=== PATIENT | female | born 1960 | race Caucasian/White ===

== ENCOUNTER 2020-06-22 09:00 | Inpatient (IN) | payer BC ==
[~2020-06-22] VITALS: Ht 160 cm; Wt 84.7 kg
[2020-06-22] MEDS ORDERED: ALTE2VIA2 (11:25)
[2020-06-22] MEDS ORDERED: HEPA500018 SQ (11:25)
[2020-06-22] MEDS ORDERED: PROM25AM2 IV (11:25)
[2020-06-22] MEDS ORDERED: METO5VIA26 IV (11:25)
[2020-06-22] MEDS ORDERED: PRD10T PO (11:25)
[2020-06-22] MEDS ORDERED: ONDA2VIA2 IV (11:25)
[2020-06-22] MEDS ORDERED: INSU100V39 SQ (11:25)
[2020-06-22] MEDS ORDERED: SODI10SY5 (11:25)
[2020-06-22] MEDS ORDERED: SUCR1TAB36 PO (11:25)
[2020-06-22] MEDS ORDERED: FLUT1DIS26 IH (11:25)
[2020-06-22] MEDS ORDERED: DEXT50DI2 IV (11:25)
[2020-06-22] MEDS ORDERED: ACET650S15 RC (11:25)
[2020-06-22] MEDS ORDERED: HYDR20VI7 IV (11:25)
[2020-06-22] MEDS ORDERED: MULT-166 PO (11:25)
[2020-06-22] MEDS ORDERED: DIPH50VI12 IV (11:25)
[2020-06-22] MEDS ORDERED: PHEN30SP8 PO (11:25)
[2020-06-22] MEDS ORDERED: FAMO20TA3 PO (11:25)
[2020-06-22] MEDS ORDERED: ACET-2650 PO (11:25)
[2020-06-22] MEDS ORDERED: MIDO5TAB3 PO (11:25)
[2020-06-22] MEDS ORDERED: DICL100G18 TOP (11:25)
[2020-06-22] MEDS ORDERED: LORA2VIA3 IV (11:25)
[2020-06-22] MEDS ORDERED: NYST1POW31 TOP (11:25)
[2020-06-22] MEDS ORDERED: LACT1CAP7 PO (11:25)
[2020-06-22] MEDS ORDERED: LIDO700A45 TP (11:25)
[2020-06-22] MEDS ORDERED: SODI10SY5 IV ×2 (11:25)
[2020-06-22] MEDS ORDERED: IPRA3AMP31 IH (11:25)
[2020-06-22] MEDS ORDERED: TRAM50TA3 PO (11:25)
[2020-06-22] MEDS ORDERED: LEVO100T7 PO (11:25)
[2020-06-22 12:00] VITALS: BP 129/69
[2020-06-22] MEDS ORDERED: FLEET ENEMA ADULT 1 EA BTL PR PRN (12:30)
[2020-06-22] MEDS ORDERED: DOCUSATE SODIUM 100 MG (COLACE) CAP PO PRN (12:30)
[2020-06-22] MEDS ORDERED: diphenhydrAMINE 25 MG TAB (BENADRYL) PO PRN (12:30)
[2020-06-22] MEDS ORDERED: guaiFENesin/CODEINE (ROBITUSSIN AC) 10ML UDC PO PRN (12:30)
[2020-06-22] MEDS ORDERED: MELATONIN 3 MG TABLET PO PRN (12:30)
[2020-06-22] MEDS ORDERED: LOPERAMIDE 2 MG (IMODIUM) TABLET PO PRN (12:30)
[2020-06-22] MEDS ORDERED: ONDANSETRON 4 MG (ZOFRAN) ORAL DISSOLVE TAB PO PRN (12:30)
[2020-06-22] MEDS ORDERED: BISACODYL 10 MG SUPP (DULCOLAX) PR PRN (12:30)
[2020-06-22] MEDS ORDERED: LACTULOSE SYRUP 10GM/15ML (ENULOSE) 30ML UDC PO PRN (12:30)
[2020-06-22] MEDS ORDERED: ACETAMINOPHEN 500 MG TAB (TYLENOL) PO PRN (12:30)
[2020-06-22] MEDS ORDERED: ALPRAZolam 0.25 MG (XANAX) TAB PO PRN (12:30)
[2020-06-22] MEDS ORDERED: CALCIUM CARBONATE 500 MG (TUMS) TAB.CHEW PO PRN (12:30)
--- NOTE | 2020-06-22 12:40 | Occupational Therapy Eval ---
OT Evaluation-General/PLF Medical Diagnosis Admission Date June 22, 2020 Medical Diagnosis: disuse myopathy Onset Date: Mar 08, 2020 Therapy Diagnosis Therapy Diagnosis: weakness, decreased ADL status Referral Physician: Regi Referral Reason: Evaluation/Treatment Medical History Pertinent Medical History: COPD, Hypothroidism Additional Medical History chronic constipation, depression, insomnia, bipolar disorder Current History Admit 03/08/2020 to [facility] for complications of diverticulosis, suffered ruptured diverticullum and peritonitis. Found to have large perforated duodenal ulcer and abscess. by day 11 required diverting ileostomy and colorrhaphy. Day 15 takedown of colostomy and colcolostomy, multiple washouts in OR and 3 drains. Admitted to LT[facility], weaned from BiPAP to RA and no longer needs TPN. 06/22/[address] [facility] for continued medication management and skilled therapies Social History Current Living Status: Other Family (Parents) ADL-Prior Level of Function SCALE: Activities may be completed with or without assistive devices. 8-Amgqnxjbet-eripdoc completes the activity by him/herself with no assistance from a helper. 5-Set-up or Clean-up Assistance-helper sets up or cleans up; patient completes activity. Kimberly assists only prior to or following the activity. 4-Supervision or Touching Assistance-helper provides verbal cues and/or touching/steadying and/or contact guard assistance as patient completes activity. Assistance may be provided throughout the activity or intermittently. 3-Partial/Moderate Assistance-helper does LESS THAN HALF the effort. Kimberly lifts, holds or supports trunk or limbs, but provides less than half the effort. 2-Substantial/Maximal Assistance-helper does MORE THAN HALF the effort. Kimberly lifts or holds trunk or limbs and provides more than half the effort. 3-Miurykzed-igdxzi does ALL the effort. Patient does none of the effort to complete the activity. Or, the assistance of 2 or more helpers is required for the patient to complete the activity. If activity was not attempted, code reason: 7-Patient Refused. 9-Not Applicable-not attempted and the patient did not perform the activity before the current illness, exacerbation or injury. 10-Not Attempted due to Environmental Limitations-(lack of equipment, weather restraints, etc.). 88-Not Attempted due to Medical Conditions or Safety Concerns. ADL PLOF Comments IND with ADLS and functional mobility, no AD/AE. 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 Agreeable to OT evaluation and OT/PT cotreat. Pt reports chills, nurse states pt has fever. Mental Status/Objective Patient Orientation: Person, Place, Time, Situation Attachments: Colostomy/Ileostomy, Drains Current Glasses/Contacts: Yes Hearing Aids: No Dentures/Partials: No Hand Dominance: Right Upper Extremity ROM Pt reports able to feed herself, unable to formally test due to pt fatigue and chills Upper Extremity Coordination shakiness with fine motor tasks Upper Extremity Sensation Pt reports no tingling/numbness Upper Extremity Strength grossly 2+/5 ADL-Treatment Eating (QC): 5 (Per pt report) Oral Hygiene (QC): 5 (Per pt report) Shower/Bathe Self (QC): 1 (Assist x2 for sponge bath at bed level) Upper Body Dressing (QC): 2 (Based on clinical judgement, pt would require max A with task.) Lower Body Dressing (QC): 1 (Based on clinical judgement, pt would require assist x2 and assist with all parts.) On/Off Footwear (QC): 1 (Total sasist donning/doffing gripper socks) Toileting Hygiene (QC): 1 (Assist x2 at bed level for rolling side to side.) Other Treatments OT evaluation complete. PT/OT cotreat due to pt skill of 2 clinicians required which a electrostatic powder coating technician could not perform in order to coordinate UE/LE with tasks, decrease fall risk, and due to pt's limitations in mobility, transfers, e ndurance, strength, and fatigue. OT focused on ADLs, UE placement, cues for sequencing and placement, PT focused on LE placement, gross overall movements, and mobility/transfers. Dependent jens transfer from w/c to bed. Pt completed sponge bath at bed level, assist x2 for rolling side to side in order to wash buttocks and back. Pt required frequent rest breaks during tx due to fatigue and overal not feeling well. Pt changed hospital gown, and discussed level of assistance required with eating and oral care (set up assistance with both). Post tx, pt laying in bed, call light in reach and all needs met, nurse present. Education OT Patient Education: Correct positioning, Energy conservation, Exercise program, Modified ADL techniques, Progress toward Goal/Update tx plan, Purpose of tx/functional activities, Rehab process Teaching Recipient: Patient Teaching Methods: Discussion Response to Teaching: Verbalize Understanding OT Short Term Goals Short Term Goals Time Frame: Jul 06, 2020 Toileting hygiene: 3 Shower/bathe self: 3 Upper body dressin Lower body dressin Putting on/taking off footwear: 3 OT [employer] Production Specialist Goals Prison Goals Time Frame: Jul 20, 2020 Eating (QC): 6 Oral Hygiene (QC): 6 Toileting Hygiene (QC): 6 Shower/Bathe Self (QC): 6 Upper Body Dressing (QC): 6 Lower Body Dressing (QC): 6 On/Off Footwear (QC): 6 Additional Goals: 1-Demonstrate ADL Tasks, 2-Verbalize Understanding, 3- ImproveStrength/Joni 1=Demonstrate adherence to instructed precautions during ADL tasks. 2=Patient will verbalize/demonstrate understanding of assistive devices/modifications for ADL. 3=Patient will improve strength/tolerance for activity to enable patient to perform ADL's. OT Education/Plan Problem List/Assessment Assessment: Decreased Activ Tolerance, Decreased UE Strength, Dependent Transfers, Impaired Bed Mobility, Impaired Coordination, Impaired Funct Balance, Impaired I ADL's, Impaired Self-Care Skills, Restricted Funct UE ROM Discharge Recommendations Plan/Recommendations: Continue POC Comment Discharge/equipment recommendations to be determined. Treatment Plan/Plan of Care Patient would benefit from OT for education, treatment and training to promote independence in ADL's, mobility, safety and/or upper extremity function for ADL's. Plan of Care: ADL Retraining, Functional Mobility, Group Exercise/Act as Ind, UE Funct Exercise/Act Treatment Duration: Jul 20, 2020 Frequency: Modified Program (IRF) (11/10) Estimated Hrs Per Day: 1.5 hours per day (1-1.5 hours/day) Rehab Potential: Fair Time/GCodes Start Time: 12:40 Stop Time: 14:25 Total Time Billed (hr/min): 75 Billed Treatment Time 2205-7342 OT evaluation, 2577-1858 PT evaluation, 8237-4834 OT/PT cotreat, 1410- 1425 OT/PT cotreat 1, EVH (10'), ADL 4 (65') KARMA FROST OT Jun 22, 2020 12:40
[2020-06-22 13:00] VITALS: BP 128/66
[2020-06-22] MEDS ORDERED: meTOprolol 5 MG/5 ML (LOPRESSOR) VIAL IV PRN (13:00)
[2020-06-22] MEDS ORDERED: DEXTROSE 50% 50 ML (IMS) SYR IV PRN (13:00)
[2020-06-22] MEDS ORDERED: hydrALAZINE (APESOLINE) 20 MG/ML VIAL IV PRN (13:00)
[2020-06-22] MEDS ORDERED: VANCOMYCIN INJECTION 1,000 MG in NS (IVPB) 250 ML IV SCH (13:00)
[2020-06-22] MEDS ORDERED: MEROPENEM 1,000 MG in WATER (STERILE) FOR INJECTION 20 ML IV SCH (13:00)
[2020-06-22] MEDS ORDERED: diphenhydrAMINE 50 MG/ML INJ (BENADRYL) IV PRN (13:00)
[2020-06-22] MEDS ORDERED: CATHETER FLUSH 10 ML SYR IV PRN ×2 (13:00)
[2020-06-22] MEDS ORDERED: PROMETHAZINE INJ 25 MG/ML (PHENERGAN) AMP IV PRN (13:00)
[2020-06-22] MEDS ORDERED: RT-ALBUTEROL/IPRATROPIUM 3 ML (DUONEB) VIAL IH PRN (13:00)
[2020-06-22] MEDS ORDERED: ALTEPLASE 2 MG (CATHFLO) INCATH PRN (13:00)
[2020-06-22] MEDS ORDERED: ACETAMINOPHEN 650 MG SUPP (TYLENOL) RC PRN (13:00)
--- NOTE | 2020-06-22 13:13 | PM&R Post Admission Assessment ---
PM&R HP Date of Visit: Jun 22, 2020 Time of Visit: 13:15 History of Present Illness CC: Disuse myopathy HPI: This is a 60yoWF who was originally admitted August 2019 at [facility] due to a ruptured diverticulum requiring diverting iliostomy and then admitted on 03/08/2020 to [facility] for elective take-down of iliostomy but soon after that surgery it was apparent she had sepsis so she had exploratory surgery which revealed peritonitis and a large perforated duodenal ulcer and abscess and by day 15 required a takedown of colostomy and multiple washouts in OR and 3 drains. Admitted to [facility] from [facility] and required a clamp placement endoscopically by Dr Cardenas which closed the non-healing duodenal ulcer and was weaned from BiPAP to RA and no longer needed TPN currently. I received check out from Dr Palacios who has been managing FUO with antibiotics. She arrived with fever of 101.2 so sepsis w/u initiated without signs of hypotension so she was pancultured and CXR revealed PNA so she was placed on Meropenem and Vanc empirically and given IVF. Dr Moser has been consulted for general surgery needs and management of drain and wound. Patient appears to be very debilitated and will require 11/10 rehab pace to accommodate for her severe weakness and current sepsis. 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 Allergy/Meds/Data Review Allergies Coded Allergies: Penicillins (Verified Allergy, Unknown, 06/22/20) Home Medications Scheduled Diclofenac Sodium (Voltaren), 1 APPLIC TOP BID, (Reported) Famotidine (Acid Wood Polisher (FAMOTIDINE)), 20 MG PO BID, (Reported) Fluticasone/Salmeterol (Advair 250-50 Diskus), 1 EACH IH BID, (Reported) Heparin Sodium,Porcine (Heparin Sodium), 5,000 UNIT SQ Q12H, (Reported) Insulin Lispro (Insulin Lispro), 0-14 UNIT SQ ACHS, (Reported) Lactobacillus Acidophilus/Pect (Acidophilus-Pectin Capsule), 1 EACH PO BID, (Reported) Levothyroxine Sodium (Levothyroxine Sodium), 100 MCG PO DAILY, (Reported) Lidocaine (Lidocaine 5% Patch), 1 EACH TP DAILY, (Reported) Multivitamin with Minerals (Multivitamins with Minerals), 1 EACH PO DAILY, (Reported) Nystatin (Nystatin), 1 EACH TOP BID, (Reported) Prednisone (Prednisone), 10 MG PO DAILY, (Reported) Sodium Chloride 0.9 % (Flush) ([place] Sodium Chlor Flush), 10 ML BID PRN, (Reported) Sodium Chloride 0.9 % (Flush) ([place] Sodium Chlor Flush), 10 ML IV Q12H, (Reported) Sucralfate (Carafate), 1 GM PO Q6H, (Reported) Scheduled PRN Acetaminophen (Acetaminophen), 650 MG RC Q6H PRN for PAIN-MILD (1-4) OR TEMPATURE, (Reported) Alteplase (Cathflo Activase), 2 MG PRN PRN for PORT, (Reported) Dextrose 50 % in Water (Dextrose 50%-Water Syringe), 50 ML IV PRN PRN for BG LESS THEN 50, (Reported) Diphenhydramine HCl (Diphenhydramine HCl), 12.5 MG IV Q6H PRN for ITCHING, (Reported) Hydralazine HCl (Hydralazine HCl), 20 MG IV Q4H PRN for SBP GREATER THAN 140, (Reported) Ipratropium/Albuterol Sulfate (Iprat-Albut 0.5-3(2.5) mg/3 ml), 3 ML IH Q4H PRN for SHORTNESS OF BREATH, (Reported) Lorazepam (Lorazepam), 1 MG IV BID PRN for ANXIETY, (Reported) Metoprolol Tartrate (Metoprolol Tartrate), 5 MG IV Q4H PRN for HR < 100 OR SBP <140, (Reported) Midodrine HCl (Midodrine HCl), 10 MG PO Q4H PRN for SBP LESS THAN 100, (Reported) Ondansetron HCl (Ondansetron HCl), 4 MG IV Q6H PRN for NAUSEA/VOMITING-1ST LINE, (Reported) Phenol/Glycerin (Chloraseptic Max Epworth), 2 SPRAYS PO EVERY 2 HOURS PRN for SORE THROAT, (Reported) Promethazine HCl (Promethazine Vial), 12.5 MG IV Q6H PRN for NAUSEA/VOMITING-2ND LINE, (Reported) Sodium Chloride 0.9 % (Flush) ([place]ield Sodium Chlor Flush), 10 ML IV UD PRN for PORT FLUSH, (Reported) Sodium Chloride 0.9 % (Flush) ([place] Sodium Chlor Flush), 20 ML IV UD PRN for AFTER BLOOD DRAW, (Reported) Tramadol HCl (Tramadol HCl), 50 MG PO Q6H PRN for PAIN-MODERATE (5-7), (Reported) Discontinued Medications Acetaminophen (Tylenol Arthritis), 650 MG PO Q6H, (Reported) Discontinued Reason: No Longer Taking Current Medications Current Medications Reviewed Review of Systems Constitutional: see HPI, fever, weakness EENTM: no symptoms reported Respiratory: no symptoms reported Cardiovascular: no symptoms reported Gastrointestinal: abdominal pain, loss of appetite, nausea Genitourinary: no symptoms reported Musculoskeletal: back pain, joint pain Skin: no symptoms reported Psychiatric/Neurological: Anxiety, Depressed, Emotional Problems All Other Systems Reviewed Negative Unless Noted: Yes Physical Exam Physical Exam Vital Signs Vital Signs - First Documented 06/22/20 12:54 Pulse Ox 97 O2 Delivery Room Air Capillary Refill : Height, Weight, BMI Height: '" Weight: lbs. oz. kg; 33.08 BMI Method: General Appearance: Anxious, Chronically ill, Moderate Distress, Thin Eyes: Bilateral Eye Normal Inspection, Bilateral Eye PERRL HEENT: PERRL/EOMI, Normal ENT Inspection, Pharynx Normal Neck: Full Range of Motion, Normal Inspection, Non Tender, Supple, Carotid Bruit Respiratory: Chest Non Tender, Lungs Clear, No Accessory Muscle Use, No Respiratory Distress, Decreased Breath Sounds Cardiovascular: Regular Rate, Rhythm, No Edema, No Gallop, No JVD, No Murmur, Normal Peripheral Pulses, Tachycardia Gastrointestinal: Normal Bowel Sounds, No Organomegaly, No Pulsatile Mass, Non Tender, Soft Back: Normal Inspection, No CVA Tenderness, No Vertebral Tenderness Extremity: Normal Capillary Refill, Normal Inspection, Normal Range of Motion, Non Tender, No Calf Tenderness, No Pedal Edema Neurologic/Psychiatric: Alert, Oriented x3, No Motor/Sensory Deficits, Normal Mood/Affect, motion picture camera operator II-XII Norm as Tested, Depressed Affect, Motor Weakness (all extremities) Skin: Normal Color, Cool Lymphatic: No Adenopathy PM&R Medical Assessment & Plan REHAB/MEDICAL ASSESSMENT AND PLAN: REHAB IMPAIRMENT GROUP: Disuse myopathy ETIOLOGIC DIAGNOSIS: Disuse myopathy The comorbidities that impact the patients function and/or functional outcome by: severe debility with current sepsis on admit with PNA on CXR requiring IVF and close monitoring for decompensation REHAB PLAN: The patient is being admitted to our comprehensive inpatient rehabilitation facility and can tolerate the intensity of service consisting of at least: 180 minutes of therapy a day, 5 out of 7 days a week Rehab treatment will consist of: PT OT will focus on regaining strength in the midst of severe debility and increase use of AD in order to return to independent living The patient/family has a good understanding of our discharge process and will benefit from an interdisciplinary inpatient rehabilitation program. The patient has potential to make improvement and is in need of at least two of the following multidisciplinary therapies including but not limited to physical, occupational, speech, and prosthetics and orthotics. Additionally the patient will need services from respiratory, nutritional services, wound care, psychology, etc. (Customize this to each patient). Given the patients complex condition and risk of further medical complications, rehabilitation services cannot be safely or effectively provided at a lower level of care such as a half-way facility. BARRIERS TO DISCHARGE: Severe debility ESTIMATED LOS: 21 days DISPOSITION: Home with parents RELEVANT CHANGES SINCE PREADMISSION SCREENING: I have compared the patients medical and functional status at the time of the preadmission screening and there are: no changes PROGNOSIS: Guarded REHABILITATION GOALS: 1. PT OT will focus on regaining strength in the midst of severe debility and increase use of AD in order to return to independent living All the above goals were reviewed with the patient and he/she is in agreement. By signing this document, I acknowledge that I have personally performed a full physical examination on this patient within 24 hours of admission to this inpatient rehabilitation facility and have determined the patient to be able to tolerate the above course of treatment at an intensive level for a reasonable period of time. I will be completing a detailed individualized Plan of Care for this patient by day #4 of the patients stay based upon the Preadmission Screen, the Post-Admission Evaluation, and the therapy evaluations. Admission Dx/Comorbidities: (1) Myopathy ICD Codes: G72.9 - Myopathy, unspecified (2) Ileostomy in place ICD Codes: Z93.2 - Ileostomy status (3) Sepsis ICD Codes: A41.9 - Sepsis, unspecified organism (4) Tachycardia ICD Codes: R00.0 - Tachycardia, unspecified (5) Lactic acid acidosis ICD Codes: E87.2 - Acidosis (6) Duodenal ulcer ICD Codes: K26.9 - Duodenal ulcer, unspecified as acute or chronic, without hemorrhage or perforation (7) History of peritonitis ICD Codes: Z87.19 - Personal history of other diseases of the digestive system (8) Hypothyroidism ICD Codes: E03.9 - Hypothyroidism, unspecified (9) Leukocytosis ICD Codes: D72.829 - Elevated white blood cell count, unspecified (10) Anemia ICD Codes: D64.9 - Anemia, unspecified (11) COPD (chronic obstructive pulmonary disease) ICD Codes: J44.9 - Chronic obstructive pulmonary disease, unspecified Assessment/Plan Assessment and Plan Assess & Plan/Chief Complaint Assessment: Severe disuse myopathy Acute sepsis PNA COPD Hypothyroidism Ileostomy in place s/p perforated duodenal ulcer s/p clamp per Dr Ronald RICO [place] s/p peritonitis Tachycardia COVID-19 negative swab at [facility] FUO at [facility] for 3 weeks Plan: Broad spectrum abx IVF Monitor closely Pain meds Check C diff Check ABG Consult MAURICIO Lange DO Jun 22, 2020 13:13
[2020-06-22] MEDS ORDERED: ACETAMINOPHEN 325 MG TABLET PO PRN (13:15)
--- NOTE | 2020-06-22 13:21 | Diagnostic Imaging Report ---
INDICATION: Fever. COMPARISON: None FINDINGS: Single frontal radiographic view of the chest was obtained and demonstrates scattered areas of interstitial thickening bilaterally. There is partial obscuration of left heart border and left hemidiaphragm. No large effusion or pneumothorax is seen on either side. Cardiac silhouette and pulmonary vasculature are within normal limits. Osseous structures show no gross acute abnormalities. Surgical drain is noted projecting over the upper abdomen. IMPRESSION: 1. Patchy areas of interstitial prominence bilaterally suspicious for interstitial pneumonia or edema. Correlation with Covid status is recommended. Dictated by: Dictated on workstation # [id number]
[2020-06-22] MEDS: SUCRALFATE 1 GM (CARAFATE) TAB PO SCH ×2 (13:25→17:17)
[2020-06-22] MEDS ORDERED: MIDODRINE 10 MG (PROAMATINE) TAB PO PRN (13:30)
[2020-06-22] MEDS ORDERED: LORazepam INJ 2 MG/ML (ATIVAN) VIAL IV PRN (13:30)
[2020-06-22] MEDS ORDERED: ONDANSETRON 4 MG/2 ML (SDV) Z0FRAN IV PRN (13:30)
[2020-06-22] MEDS ORDERED: HYDROmorphone 2 MG/ML VIAL (DILAUDID) IVP PRN (13:30)
[2020-06-22 13:33] LABS: BASOPHILS % (AUTO) 0 % (0-10); EOSINOPHILS # (AUTO) 0.1 10^3/uL (0.0-0.3); EOSINOPHILS % (AUTO) 0 % (0-10); HEMATOCRIT 35 % (35-52); HEMOGLOBIN 10.8 g/dL (11.5-16.0); LYMPHOCYTES # (AUTO) 2.6 10^3/uL (1.0-4.0); LYMPHOCYTES % (AUTO) 14 % (12-44); MEAN CORPUSCULAR HEMOGLOBIN 27 pg (25-34); MEAN CORPUSCULAR HGB CONC 31 g/dL (32-36); MEAN CORPUSCULAR VOLUME 86 fL (80-99); MEAN PLATELET VOLUME 9.8 fL (9.0-12.2); MONOCYTES % (AUTO) 5 % (0-12); NEUTROPHILS # (AUTO) 12.7 10^3/uL (1.8-7.8); NEUTROPHILS % (AUTO) 70 % (42-75); PLATELET COUNT 442 10^3/uL (130-400); WHITE BLOOD COUNT 18.1 10^3/uL (4.3-11.0)
[2020-06-22 13:45] LABS: ALBUMIN 3.1 GM/DL (3.2-4.5)
[2020-06-22] MEDS ORDERED: CHLORASEPTIC SPRAY 177 ML LIQUID MM PRN (13:45)
[2020-06-22 13:46] LABS: CHLORIDE 99 MMOL/L (98-107); POTASSIUM 4.7 MMOL/L (3.6-5.0); SODIUM 131 MMOL/L (135-145)
[2020-06-22 13:47] LABS: CALCIUM 9.5 MG/DL (8.5-10.1)
[2020-06-22 13:48] LABS: GLUCOSE 67 MG/DL (70-105); TOTAL PROTEIN 6.1 GM/DL (6.4-8.2)
[2020-06-22 13:49] LABS: CARBON DIOXIDE 22 MMOL/L (21-32)
[2020-06-22 13:50] LABS: BILIRUBIN,TOTAL 0.4 MG/DL (0.1-1.0)
[2020-06-22 13:52] LABS: ALKALINE PHOSPHATASE 248 U/L (40-136); CREATININE SERUM 0.48 MG/DL (0.60-1.30); GFR ESTIMATED > 60
[2020-06-22 13:53] LABS: BUN/CREATININE RATIO 31
[2020-06-22 13:55] LABS: ALANINE AMINOTRANSFERASE 27 U/L (0-55)
[2020-06-22 14:00] VITALS: BP 122/60
[2020-06-22] MEDS ORDERED: VANCOMYCIN 1,750 MG/NS 500 ML IVPB IV NR ×2 (14:00)
[2020-06-22] MEDS ORDERED: ANIDULAFUNGIN INJECTION 200 MG in NS (IVPB) 250 ML IV NR (14:00)
[2020-06-22 14:05] LABS: BILIRUBIN,URINE NEGATIVE (NEGATIVE); CLARITY,URINE CLEAR; COLOR,URINE YELLOW; GLUCOSE, URINE (UA) NEGATIVE (NEGATIVE); KETONES,URINE NEGATIVE (NEGATIVE); LEUKOCYTE ESTERASE ,URINE NEGATIVE (NEGATIVE); NITRITE,URINE NEGATIVE (NEGATIVE); PH,URINE 5.5 (5-9); PROTEIN,URINE TRACE (NEGATIVE)
--- NOTE | 2020-06-22 14:11 | Physical Therapy Evaluation ---
PT Evaluation-General Medical Diagnosis Admission Date Jun 22, 2020 at 12:00 Medical Diagnosis: disuse myopathy Onset Date: Mar 08, 2020 Therapy Diagnosis Therapy Diagnosis: weakness, debility Precautions Precautions/Isolations: Standard Precautions Weight Bear Status Weight Bearing/Tolerated Weight Bearing/Tolerated Referral Physician: Regi Reason for Referral: Evaluation/Treatment Medical History Pertinent Medical History: COPD, Hypothroidism Current History Admit 03/08/2020 to [facility] for complications of diverticulosis, suffered ruptured diverticullum and peritonitis. Found to have large perforated duodenal ulcer and abscess. by day 11 required diverting ileostomy and colorrhaphy. Day 15 takedown of colostomy and colcolostomy, multiple washouts in OR and 3 drains. Admitted to LT[facility], weaned from BiPAP to RA and no longer needs TPN. 06/22/20 admit to [facility] for continued medication management and skilled therapies Reviewed History: Yes Social History Home: Single Level Current Living Status: Other Family (Parents) Entry Into Home: Ramp Prior Prior Level of Function SCALE: Activities may be completed with or without assistive devices. 7-Kcsmrbbelw-cvzgahp completes the activity by him/herself with no assistance from a helper. 5-Set-up or Clean-up Assistance-helper sets up or cleans up; patient completes activity. [place] assists only prior to or following the activity. 4-Supervision or Touching Assistance-helper provides verbal cues and/or touchi ng/steadying and/or contact guard assistance as patient completes activity. Assistance may be provided throughout the activity or intermittently. 3-Partial/Moderate Assistance-helper does LESS THAN HALF the effort. [place] lifts, holds or supports trunk or limbs, but provides less than half the effort. 2-Substantial/Maximal Assistance-helper does MORE THAN HALF the effort. [place] lifts or holds trunk or limbs and provides more than half the effort. 6-Jtpmgquea-srcpmr does ALL the effort. Patient does none of the effort to complete the activity. Or, the assistance of 2 or more helpers is required for the patient to complete the activity. If activity was not attempted, code reason: 7-Patient Refused. 9-Not Applicable-not attempted and the patient did not perform the activity before the current illness, exacerbation or injury. 10-Not Attempted due to Environmental Limitations-(lack of equipment, weather restraints, etc.). 88-Not Attempted due to Medical Conditions or Safety Concerns. Bed Mobility: 6 Transfers (B,C,W/C): 6 Gait: 6 Stairs: 6 Stairs: Independent Prior Devices Use: None PT Evaluation-Current Subjective Pt in [facility] upon arrival to room, dependent jens lift to supine in bed. Pt shaking, chilling reporting feeling cold. RN and Dr notified. Pt moaning in pain and reported fatigue. Objective Patient Orientation: Person, Situation Attachments: Colostomy/Ileostomy, Drains ROM/Strength ROM Lower Extremities grossly WFL Strength Lower Extremities grossly 2-2+/5. Integumentary/Posture Integumentary refer to nursing notes Neuromuscular (Tone, Coordination, Reflexes) grossly intact Sensory Vision: Wears Glasses Hearing: Functional Hand Dominance: Right Transfers Roll Left & Right (QC): 1 Sit to Lying (QC): 1 Lying to Sitting/Side of Bed(Q: 1 Sit to Stand (QC): 88 Chair/Xfd-mc-Cqatk Xfer(QC): 1 Toilet Transfer (QC): 88 Car Transfer (QC): 88 Pt dependent for rolling to each side and all bed mobility. Pt able to initiate reaching with UEs to the (L) side but requires complete assistance to roll to the (L) and (R). Pt with significant pain in (R) thigh with rolling. Gait Does the Patient Walk?: No and Walking Goal IS indicated Mode of Locomotion: Both Anticipated Mode of Locomotion: Both Walk 10 feet (QC): 88 Walk 50 ft with 2 Turns(QC): 88 Walk 150 ft (QC): 88 Walking 10ft/uneven surface-QC: 88 Wheelchair Training Wheel 50 ft with 2 turns (QC): 88 Wheel 150 ft (QC): 88 Stairs 1 Step (curb) (QC): 88 4 Steps (QC): 88 12 Steps (QC): 88 Balance Sitting Static: Poor Sitting Dynamic: Poor Standing Static: Poor Picking up an Object (QC): 88 Treatment Pt in [facility] upon arrival to room, transferred to bed via jens lift, dependent. PT/OT cotreat due to pt skill of 2 clinicians required which a chief technology officer could not perform in order to coordinate UE/LE with tasks, decrease fall risk, and due to p[t's limitations in mobility, transfers, endurance, strength, and fatigue. OT focused on ADLs, UE placement, cues for sequencing and placement, PT focused on LE placement, gross overall movements, and mobility/transfers. Pt dependent for bed level bath and bed mobility. Pt requiring frequent rest breaks due to general fatigue and not feeling well. Assessment/Needs Pt with significant decline in functional mobility, strength, ROM, activity tolerance, balance and increased risk of falls following extended hospital and extended care stay. Pt would benefit from skilled PT to address above mentioned limitations to ensure safety upon dc form hospital, increase activity tolerance as well as return to PLOF. Rehab Potential: Fair PT Short Term Goals Short Term Goals Time Frame: Jun 29, 2020 Roll Left & Right: 4 Sit to lyin Lying to sitting on side of be: 4 Sit to stand: 3 Chair/ziq-un-aloho transfer: 3 Toilet transfer: 3 Car transfer: 3 Walk 10 feet: 3 Walk 50 feet with two turns: 3 Walk 150 feet: 3 Walking 10ft on uneven surface: 3 1 step (curb): 3 4 steps: 3 12 steps: 3 Picking up objects: 3 PT Kst Operator Goals Kst Operator Goals PT Kst Operator Goals Time Frame: Jul 13, 2020 Roll Left & Right (QC): 6 Sit to Lying (QC): 6 Lying-Sitting on Side/Bed(QC): 6 Sit to Stand (QC): 6 Chair/Lwv-st-Dgioc Xfer(QC): 6 Toilet Transfer (QC): 6 Car Transfer (QC): 6 Does the Patient Walk: No and Walking Goal IS indicated Walk 10 feet (QC): 4 Walk 50ft with 2 Turns (QC): 4 Walk 150 ft (QC): 4 Walking 10ft on Uneven Surface: 4 1 Step (curb) (QC): 4 4 Steps (QC): 4 12 Steps (QC): 4 Picking up an Object (QC): 4 Wheel 50 feet with 2 turns (QC: 6 Type: Manual Wheel 150 feet: 6 PT Plan Problem List Problem List: Activity Tolerance, Functional Strength, Safety, Balance, Gait, Transfer, Bed Mobility, ROM Treatment/Plan Treatment Plan: Continue Plan of Care Treatment Plan: Bed Mobility, Education, Functional Activity Joni, Functional Strength, Group Therapy, Gait, Safety, Therapeutic Exercise, Transfers Treatment Duration: Jul 13, 2020 Frequency: Modified Program (IRF) (11/10) Estimated Hrs Per Day: 1.5 hours per day (1/1.5 hours per day ) Patient and/or Family Agrees t: Yes Time/GCodes Time In: 1250 Time Out: 1425 Total Billed Treatment Time: 75 Total Billed Treatment [id number] OT Eval [id number] PT Eval 1, [facility] (10') [id number] - PT/OT cotreat FA x 3 (50') [id number] - PT/OT cotreat FA (15') PK WOLFE PT Jun 22, 2020 14:11
[2020-06-22 14:16] LABS: ANISOCYTOSIS MODERATE; BAND NEUTROPHILS 23 %; LYMPHOCYTES % (MANUAL) 19 %; MICROCYTOSIS SLIGHT; MONOCYTES % (MANUAL) 5 %; NEUTROPHILS % (MANUAL) 53 %; POIKILOCYTOSIS SLIGHT; POLYCHROMASIA SLIGHT
[2020-06-22 14:18] LABS: BACTERIA,URINE TRACE /HPF; SQUAMOUS EPITHELIAL CELL,UR 0-2 /HPF; WBC,URINE 0-2 /HPF
[2020-06-22] MEDS: MEROPENEM 500 MG/SWFI 10 ML IV PUSH IV SCH ×4 (14:23→19:50)
[2020-06-22] MEDS: NS IV 1000 ML 1,000 ML IV SCH (14:24)
[2020-06-22] MEDS: CATHETER FLUSH 10 ML SYR IV SCH (14:57)
[2020-06-22] MEDS: D5W 1000 ML IV SOLUTION 1,000 ML IV SCH (14:58)
[2020-06-22 15:00] VITALS: BP 118/62
[2020-06-22] MEDS ORDERED: RT-ALBUTEROL/IPRATROPIUM 3 ML (DUONEB) VIAL INH PRN (15:00)
[2020-06-22 16:00] VITALS: BP 111/73
[2020-06-22] MEDS: inSUlin ASPART (NovoLOG) 1 UNIT/0.01 ML (CHARGE PER UNIT) SC SCH ×2 (16:00→21:00)
[2020-06-22] MEDS ORDERED: NS IV 1000 ML 1,000 ML IV SCH (17:00)
[2020-06-22] MEDS ORDERED: SALINE NASAL SPRAY (OCEAN) 45 ML BTL PRN (17:15)
[2020-06-22 17:24] LABS: ABG BASE EXCESS -4.4 MMOL/L (-2.5-2.5); ABG OXYGEN SATURATION 97 % (94-100); ABG PCO2 32 MMHG (35-45); ABG PO2 85 MMHG (79-93); ABG TCO2 20.5 MMOL/L (21.0-31.0)
[2020-06-22 17:26] LABS: ALLENS TEST YES-POS; INSPIRED O2 RA; PATIENT TEMP 36.8; VENTILATOR NO
[2020-06-22] MEDS: ENOXAPARIN 40 MG/0.4 ML (LOVENOX) SYR SC SCH (17:44)
[2020-06-22] MEDS: RT-ALBUTEROL/IPRATROPIUM 3 ML (DUONEB) VIAL INH SCH (18:36)
[2020-06-22] MEDS: FLUTICASONE/SALMETEROL 113-14 (AIRDUO RespiCLICK) IH SCH (18:37)
[2020-06-22] MEDS: polyethylene glycoL POWDER 17 GM (MIRALAX) PACK PO SCH (19:58)
[2020-06-22] MEDS: SENNA W/DOCUSATE (SENOKOT S) TABLET PO SCH (19:58)
[2020-06-22] MEDS: LACTOBACILLUS ACIDOPHILUS (PROBIOTIC) CAPSULE PO SCH (20:00)
[2020-06-22] MEDS: DOCUSATE SODIUM 100 MG (COLACE) CAP PO SCH (20:01)
[2020-06-22] MEDS: methylPREDNISolone 40 MG/ML (Solu-MEDROL) VIAL IV SCH (20:01)
[2020-06-22] MEDS: FAMOTIDINE 20 MG (PEPCID) TABLET PO SCH (20:01)
--- NOTE | 2020-06-22 20:24 | Consultation - Surgery ---
History of Present Illness History of Present Illness Patient Consulted On(jayde/time) 06/22/20 20:18 Time Seen by Provider: 18:42 History of Present Illness Surgery asked to consult on pt regarding Ostomy status, Right sided abdominal abscess. When I spoke to pt HPI per PM&R: HPI: This is a 60yoWF who was originally admitted August 2019 at [facility] due to a ruptured diverticulum requiring diverting iliostomy and then admitted on 03/08/2020 to [facility] for elective take-down of iliostomy but soon after that surgery it was apparent she had sepsis so she had exploratory surgery which revealed peritonitis and a large perforated duodenal ulcer and abscess and by day 15 required a takedown of colostomy and multiple washouts in OR and 3 drains. Admitted to [facility] from [facility] and required a clamp placement endoscopically by Dr Cardenas which closed the non- healing duodenal ulcer and was weaned from BiPAP to RA and no longer needed TPN currently. I received check out from Dr Palacios who has been managing FUO with antibiotics. She arrived with fever of 101.2 so sepsis w/u initiated without signs of hypotension so she was pancultured and CXR revealed PNA so she was placed on Meropenem and Vanc empirically and given IVF. Dr Rendon has been consulted for general surgery needs and management of drain and wound. Patient appears to be very debilitated and will require 15/ rehab pace to accommodate for her severe weakness and current sepsis. When I spoke to pt she was a little confused on the whole series of events and really couldn't relay them. She has some abdominal pain, mostly on the right side. She has 2 drains and 2 ostomy bags on her abdomen. Allergies and Home Medications Allergies Coded Allergies: Penicillins (Verified Allergy, Unknown, 06/22/20) Home Medications Acetaminophen 650 Mg Supp.rect, 650 MG RC Q6H PRN for PAIN-MILD (1-4) OR TEMPATURE, (Reported) Alteplase 2 Mg Vial, 2 MG PRN PRN for PORT, (Reported) USE TO EACH PORT THAT FAILS TO DRAW BLOOD OR FLUSH EASILY Dextrose 50 % in Water 50 Ml Syringe, 50 ML IV PRN PRN for BG LESS THEN 50, (Reported) Diclofenac Sodium 100 Gm Gel..gram., 1 APPLIC TOP BID, (Reported) APPLY TO BILATERAL KNEES Diphenhydramine HCl 50 Mg/1 Ml Vial, 12.5 MG IV Q6H PRN for ITCHING, (Reported) Famotidine 20 Mg Tablet, 20 MG PO BID, (Reported) Fluticasone/Salmeterol 1 Each Blst.w.dev, 1 EACH IH BID, (Reported) Heparin Sodium,Porcine 5,000 Unit/1 Ml Vial, 5,000 UNIT SQ Q12H, (Reported) Hydralazine HCl 20 Mg/1 Ml Vial, 20 MG IV Q4H PRN for SBP GREATER THAN 140, (Reported) Insulin Lispro 100 Unit/1 Ml Vial, 0-14 UNIT SQ ACHS, (Reported) Ipratropium/Albuterol Sulfate 3 Ml Ampul.neb, 3 ML IH Q4H PRN for SHORTNESS OF BREATH, (Reported) Lactobacillus Acidophilus/Pect 1 Each Capsule, 1 EACH PO BID, (Reported) Levothyroxine Sodium 100 Mcg Tablet, 100 MCG PO DAILY, (Reported) Lidocaine 1 Each Adh..patch, 1 EACH TP DAILY, (Reported) APPLY TO BACK - REMOVE AT BEDTIME Lorazepam 2 Mg/1 Ml Vial, 1 MG IV BID PRN for ANXIETY, (Reported) Metoprolol Tartrate 5 Mg/5 Ml Vial, 5 MG IV Q4H PRN for HR < 100 OR SBP <140, (Reported) Midodrine HCl 5 Mg Tablet, 10 MG PO Q4H PRN for SBP LESS THAN 100, (Reported) ADMINISTER LAST OF THE DAY BEFORE 1800 Multivitamin with Minerals 1 Each Tablet, 1 EACH PO DAILY, (Reported) Nystatin 1 Each Powder.ea., 1 EACH TOP BID, (Reported) APPLY TO RASH Ondansetron HCl 2 Mg/1 Ml Vial, 4 MG IV Q6H PRN for NAUSEA/VOMITING-1ST LINE, (Reported) Phenol/Glycerin 30 Ml [place], 2 SPRAYS PO EVERY 2 HOURS PRN for SORE THROAT, (Reported) Prednisone 10 Mg Tab, 10 MG PO DAILY, (Reported) Promethazine HCl 25 Mg/1 Ml Ampul, 12.5 MG IV Q6H PRN for NAUSEA/VOMITING-2ND LINE, (Reported) Sodium Chloride 0.9 % (Flush) 10 Ml Syringe, 10 ML IV UD PRN for PORT FLUSH, (Reported) FLUSH EACH PORT WITH 10ML SALINE WITH TURBULENT POSITIVE PRESSURE AFTER EACH USE Sodium Chloride 0.9 % (Flush) 10 Ml Syringe, 10 ML BID PRN, (Reported) FLUSH [place] DRAIN WITH 10ML WITH EACH SHIRT AND PRN Sodium Chloride 0.9 % (Flush) 10 Ml Syringe, 20 ML IV UD PRN for AFTER BLOOD DRAW, (Reported) FLUSH WITH 20ML WITH TURBULENT POSITIVE PRESSURE AFTER DRAWING BLOOD Sodium Chloride 0.9 % (Flush) 10 Ml Syringe, 10 ML IV Q12H, (Reported) FLUSH WITH 10ML ALL LINES IN USE WITH TURBULENT POSITIVE PRESSURE Sucralfate 1 Gm Tablet, 1 GM PO Q6H, (Reported) MAY DISSOLVE IN WATER Tramadol HCl 50 Mg Tablet, 50 MG PO Q6H PRN for PAIN-MODERATE (5-7), (Reported) Patient Home Medication List Home Medication List Reviewed: Yes Past Luyvkgp-Zkxqvj-Gbucef Hx Patient Social History Smoking Status: Never a Smoker Alcohol Use?: No Have you traveled recently?: No Surgeries History of Surgeries: Yes Surgeries: Abdominal Respiratory History of Respiratory Disorde: Yes Respiratory Disorders: Pneumonia, Sleep Apnea Cardiovascular History of Cardiac Disorders: Yes Cardiac Disorders: Hypertension Neurological History of Neurological Disord: No Genitourinary History of Genitourinary Disor: No Gastrointestinal History of Gastrointestinal Di: Yes Gastrointestinal Disorders: Diverticulosis, Ulcer Musculoskeletal History of Musculoskeletal Dis: No Endocrine History of Endocrine Disorders: Yes Endocrine Disorders: Hypothyroidsim HEENT History of HEENT Disorders: No Loss of Vision: Denies Hearing Impairment: Denies Cancer History of Cancer: No Psychosocial History of Psychiatric Problem: Yes Behavioral Health Disorders: Bipolar Integumentary History of Skin or Integumenta: No Family Medical History Significant Family History: Diabetes Review of Systems-General Constitutional: fever, malaise, weakness EENTM: No mouth swelling, No epistaxis Respiratory: No cough; dyspnea on exertion; No hemoptysis, No short of breath Gastrointestinal: abdominal pain, heartburn, loss of appetite, nausea; No vomiting Genitourinary: No dysuria, No frequency, No hematuria Musculoskeletal: joint pain, joint swelling, muscle pain, muscle stiffness, muscle cramps Skin: No change in color, No change in hair/nails Psychiatric/Neurological: Anxiety, Depressed, Emotional Problems (bipolar); Denies Seizure, Denies Tremors Other pt denied any hx of abnormal bleeding or bruising Physical Exam-General Problems Physical Exam Vital Signs Vital Signs - First Documented 06/22/20 06/22/20 12:00 14:46 Temp 38.6 Pulse 116 Resp 20 B/P (MAP) 129/69 (89) Pulse Ox 96 O2 Delivery Room Air FiO2 21 Capillary Refill : General Appearance: no apparent distress, obese Eyes: Bilateral Eye PERRL, Bilateral Eye EOMI HEENT: pharynx normal; No scleral icterus (R), No scleral icterus (L), No pale conjunctivae (R), No pale conjunctivae (L) Neck: full range of motion, supple Respiratory: no respiratory distress, no accessory muscle use, decreased breath sounds Cardiovascular: no murmur, tachycardia Gastrointestinal: abnormal bowel sounds; No distended; tenderness, other (pt has an ileostomy close to umbilicus in RLQ, she has a wound dehiscence in midline incision above umbilicus - unsure what is in opening, does not look like bowel. In her right flank she has another ostomy bag and then a drain, as well as a drain in the RUQ) Back: no CVA tenderness, no vertebral tenderness Extremities: no pedal edema, no calf tenderness Neurologic/Psychiatric: ad copy writer II-XII nml as tested, alert, oriented x 3 Skin: normal color, warm/dry Lymphatic: no adenopathy (neck, axilla or groin) Data Review Labs Laboratory Tests 06/22/20 13:22: White Blood Count 18.1H, Red Blood Count 4.06, Hemoglobin 10.8L, Hematocrit 35, Mean Corpuscular Volume 86, Mean Corpuscular Hemoglobin 27, Mean Corpuscular Hemoglobin Concent 31L, Red Cell Distribution Width 19.9H, Platelet Count 442H, Mean Platelet Volume 9.8, Immature Granulocyte % (Auto) 10, Neutrophils (%) (Auto) 70, Lymphocytes (%) (Auto) 14, Monocytes (%) (Auto) 5, Eosinophils (%) (Auto) 0, Basophils (%) (Auto) 0, Neutrophils # (Auto) 12.7H, Lymphocytes # (Auto) 2.6, Monocytes # (Auto) 1.0, Eosinophils # (Auto) 0.1, Basophils # (Auto) 0.0, Immature Granulocyte # (Auto) 1.8H, Neutrophils % (Manual) 53, Lymphocytes % (Manual) 19, Monocytes % (Manual) 5, Band Neutrophils 23, Polychromasia SLIGHT, Poikilocytosis SLIGHT, Anisocytosis MODERATE, Microcytosis SLIGHT, Macrocytosis SLIGHT, Sodium Level 131L, Potassium Level 4.7, Chloride Level 99, Carbon Dioxide Level 22, Anion Gap 10, Blood Urea Nitrogen 15, Creatinine 0.48L, Estimat Glomerular Filtration Rate > 60, BUN/Creatinine Ratio 31, Glucose Level 67L, Lactic Acid Level 2.96*H, Calcium Level 9.5, Corrected Calcium 10.2H, Total Bilirubin 0.4, Aspartate Amino Transf (AST/SGOT) 18, Alanine Aminotransferase ( ALT/SGPT) 27, Alkaline Phosphatase 248H, Total Protein 6.1L, Albumin 3.1L, Procalcitonin 0.18H 06/22/20 13:30: Urine Color YELLOW, Urine Clarity CLEAR, Urine pH 5.5, Urine Specific [place] 1.025H, Urine Protein TRACEH, Urine Glucose (UA) NEGATIVE, Urine Ketones NEGATIVE, Urine Nitrite NEGATIVE, Urine Bilirubin NEGATIVE, Urine Urobilinogen 0.2, Urine Leukocyte Esterase NEGATIVE, Urine RBC (Auto) NEGATIVE, Urine RBC NONE, Urine WBC 0-2, Urine Squamous Epithelial Cells 0-2, Urine Crystals NONE, Urine Bacteria TRACE, Urine Casts NONE, Urine Mucus SMALLH, Urine Culture Indicated NO 06/22/20 15:20: Lactic Acid Level 2.53*H 06/22/20 15:44: Glucometer 77 06/22/20 17:15: Blood Gas Puncture Site LR, Blood Gas Patient Temperature 36.8, Arterial Blood pH 7.40, Arterial Blood Partial Pressure CO2 32L, Arterial Blood Partial Pressure O2 85, Arterial Blood HCO3 20L, Arterial Blood Total CO2 20.5L, Arteri al Blood Oxygen Saturation 97, Arterial Blood Base Excess -4.4L, Joey Test YES- POS, Blood Gas Ventilator Setting NO, Blood Gas Inspired Oxygen RA 06/22/20 18:20: Lactic Acid Level 2.30*H 06/22/20 20:05: Glucometer 95 Radiology Date of Exam:06/22/20 CHEST 1 VIEW, AP/PA ONLY INDICATION: Fever. COMPARISON: None FINDINGS: Single frontal radiographic view of the chest was obtained and demonstrates scattered areas of interstitial thickening bilaterally. There is partial obscuration of left heart border and left hemidiaphragm. No large effusion or pneumothorax is seen on either side. Cardiac silhouette and pulmonary vasculature are within normal limits. Osseous structures show no gross acute abnormalities. Surgical drain is noted projecting over the upper abdomen. IMPRESSION: 1. Patchy areas of interstitial prominence bilaterally suspicious for interstitial pneumonia or edema. Correlation with Covid status is recommended. Dictated by: Dictated on workstation # [id number] Dict: 06/22/20 1319 Trans: 06/22/20 1652 [facility] [id number] Interpreted by: JOSE OROZCO MD Electronically signed by: JOSE OROZCO MD 06/22/20 1652 Assessment/Plan Assessment/Plan Assessment/Plan Abdominal/Flank Abscess - Right Ileostomy status Wound dehiscence Malnutrition Pneumonia I am not sure of the complete story about what exact surgeries she had; would like to get all Op Reports. I also need to figure out exactly what is going on with abscess and the wound dehiscence; recent CT scans of abd/pelvis would be helpful and hopefully they can be clouded over (trying to avoid having to do another one here). She may be septic right now; has elevated WBC and tachycardia, cultures were ordered. She is getting IV ABX and doesn't appear to be in severe distress at this time. Wound encourage PO intake for nutrition; it is much superior to TPN. I will follow along. CINTHIA RENDON DO Jun 22, 2020 20:23
[2020-06-22] MEDS: MICONAZOLE 2% POWDER (DESENEX AF) 90 GM TOP SCH (21:00)
[2020-06-22] MEDS: LIDOCAINE PATCH REMOVAL TP SCH (21:00)
[2020-06-22] MEDS: DICLOFENAC 1% GEL 100 GM (VOLTAREN) TUBE TOP SCH (21:00)
[2020-06-23] MEDS: SUCRALFATE 1 GM (CARAFATE) TAB PO SCH ×4 (00:22→18:47)
[2020-06-23] MEDS: NS IV 1000 ML 1,000 ML IV SCH ×2 (00:22→11:22)
[2020-06-23] MEDS: CATHETER FLUSH 10 ML SYR IV SCH ×2 (01:46→13:00)
[2020-06-23] MEDS: MEROPENEM 500 MG/SWFI 10 ML IV PUSH IV SCH ×8 (02:03→19:57)
[2020-06-23] MEDS: VANCOMYCIN 1250 MG/NS 250 ML IVPB IV SCH ×4 (02:05→14:47)
[2020-06-23 06:00] VITALS: BP 104/61
[2020-06-23] MEDS: LEVOTHYROXINE 100 MCG (LEVOTHROID) TAB PO SCH (06:01)
[2020-06-23 06:19] LABS: BASOPHILS % (AUTO) 0 % (0-10); EOSINOPHILS # (AUTO) 0.1 10^3/uL (0.0-0.3); EOSINOPHILS % (AUTO) 0 % (0-10); HEMATOCRIT 27 % (35-52); HEMOGLOBIN 8.5 g/dL (11.5-16.0); LYMPHOCYTES # (AUTO) 2.7 10^3/uL (1.0-4.0); LYMPHOCYTES % (AUTO) 13 % (12-44); MEAN CORPUSCULAR HEMOGLOBIN 27 pg (25-34); MEAN CORPUSCULAR HGB CONC 32 g/dL (32-36); MEAN CORPUSCULAR VOLUME 85 fL (80-99); MEAN PLATELET VOLUME 9.9 fL (9.0-12.2); MONOCYTES # (AUTO) 1.1 10^3/uL (0.0-1.0); MONOCYTES % (AUTO) 5 % (0-12); NEUTROPHILS % (AUTO) 71 % (42-75); PLATELET COUNT 322 10^3/uL (130-400)
[2020-06-23 06:36] LABS: ALBUMIN 2.2 GM/DL (3.2-4.5)
[2020-06-23 06:37] LABS: CHLORIDE 103 MMOL/L (98-107); POTASSIUM 3.9 MMOL/L (3.6-5.0); SODIUM 130 MMOL/L (135-145)
[2020-06-23 06:38] LABS: CALCIUM 8.1 MG/DL (8.5-10.1)
[2020-06-23 06:39] LABS: GLUCOSE 68 MG/DL (70-105); TOTAL PROTEIN 4.5 GM/DL (6.4-8.2)
[2020-06-23 06:40] LABS: CARBON DIOXIDE 20 MMOL/L (21-32)
[2020-06-23 06:41] LABS: BILIRUBIN,TOTAL 0.5 MG/DL (0.1-1.0)
[2020-06-23 06:42] LABS: ALKALINE PHOSPHATASE 213 U/L (40-136)
[2020-06-23 06:43] LABS: CREATININE SERUM 0.43 MG/DL (0.60-1.30); GFR ESTIMATED > 60
[2020-06-23 06:44] LABS: BUN/CREATININE RATIO 30
[2020-06-23 06:45] LABS: ALANINE AMINOTRANSFERASE 24 U/L (0-55)
[2020-06-23] MEDS: RT-ALBUTEROL/IPRATROPIUM 3 ML (DUONEB) VIAL INH SCH ×2 (06:51→18:34)
[2020-06-23] MEDS: inSUlin ASPART (NovoLOG) 1 UNIT/0.01 ML (CHARGE PER UNIT) SC SCH ×4 (06:58→21:51)
[2020-06-23] MEDS: DICLOFENAC 1% GEL 100 GM (VOLTAREN) TUBE TOP SCH ×2 (08:26→21:52)
[2020-06-23] MEDS: FAMOTIDINE 20 MG (PEPCID) TABLET PO SCH ×2 (08:26→21:51)
[2020-06-23] MEDS: MULTIVIT W/MINERALS TAB (THERAGRAN M) PO SCH (08:26)
[2020-06-23] MEDS: LACTOBACILLUS ACIDOPHILUS (PROBIOTIC) CAPSULE PO SCH ×2 (08:26→21:51)
[2020-06-23] MEDS: methylPREDNISolone 40 MG/ML (Solu-MEDROL) VIAL IV SCH ×2 (08:26→21:50)
[2020-06-23] MEDS: ANIDULAFUNGIN INJECTION 100 MG in NS (IVPB) 100 ML IV SCH (08:26)
[2020-06-23] MEDS: MICONAZOLE 2% POWDER (DESENEX AF) 90 GM TOP SCH ×2 (08:27→21:52)
[2020-06-23 08:34] VITALS: BP 110/55
--- NOTE | 2020-06-23 08:38 | Individualized Plan of Care ---
Individualized Plan of Care Rehab Nursing IPOC Order Admission Date Jun 22, 2020 at 12:00 Current Orders Orders Admission Order(Inpt,Obs,Sdc) (06/22/20 12:20) Vital Signs: Per Unit Policy ( 08,16,00 (06/22/20 12:20) Gantry Rigger-Inpt Rehab Con (06/22/20 12:20) Rehab Nursing Orders-Ipoc (06/22/20 12:20) Physical Therapy Rehab Orders (06/22/20 12:20) Occupational Therapy Rehab Ord (06/22/20 12:20) Speech Therapy Rehab Orders (06/22/20 12:20) Cbc With Automated Diff (06/23/20 06:00) Comprehensive Metabolic Panel (06/23/20 06:00) Intake & Output 06,14,22 (06/22/20 12:20) Precautions (Aru) (06/22/20 12:20) Weekly Weight WEEK (06/22/20 12:20) Rehab-Intensity Of Therapy (06/22/20 12:20) Acetaminophen Tablet (Tylenol Tablet) (06/22/20 12:30) Alprazolam Tablet (Xanax Tablet) (06/22/20 12:30) Calcium Carbonate Chew Tablet (Antacid C (06/22/20 12:30) Diphenhydramine Tablet (Benadryl Tablet) (06/22/20 12:30) Docusate Sodium Capsule (Colace Capsule) (06/22/20 21:00) Docusate Sodium Capsule (Colace Capsule) (06/22/20 12:30) Bisacodyl Suppository (Dulcolax Supposit (06/22/20 12:30) Lactulose Oral Solution (Enulose Oral So (06/22/20 12:30) Na Phos/Na Biphos Enema (Fleet Enema Efraín (06/22/20 12:30) Guaifenesin/Codeine Syrup (Robitussin Ac (06/22/20 12:30) Loperamide Tablet (Imodium Tablet) (06/22/20 12:30) Melatonin Tablet (Melatonin Tablet) (06/22/20 12:30) Polyethylene Glycol Powder Pkt (Miralax (06/22/20 21:00) Ondansetron Oral Dissolve Tab (Zofran (06/22/20 12:30) Senna S Tablet (Senokot S Tablet) (06/22/20 21:00) Initiate Admission Nursing Pro .admission (06/22/20 12:20) Consult General Surgery (06/22/20 12:20) Admission Arrival Bed Request (06/22/20 12:25) Acetaminophen Suppository (Tylenol Suppo (06/22/20 13:00) Alteplase (Cathflo) Injection (Cathflo (06/22/20 13:00) D50w (Emergency) Syringe (Dextrose 50% 5 (06/22/20 13:00) Diclofenac 1% Gel (Voltaren 1% Gel) (06/22/20 21:00) Diphenhydramine Injection (Benadryl Inje (06/22/20 13:00) Famotidine Tablet (Pepcid Tablet) (06/22/20 21:00) Heparin Injection (Heparin Injection) (06/22/20 13:00) Hydralazine Injection (Apresoline Inject (06/22/20 13:00) Albuterol/Ipra Inhalation Soln (Duoneb I (06/22/20 13:00) Lactobacillus Acidophilus Cap (Acidophil (06/22/20 21:00) Levothyroxine Tablet (Synthroid Tablet) (06/23/20 06:30) Lidocaine 4% Patch (Salonpas 4% Patch) (06/23/20 09:00) Metoprolol Tartrate Injection (Lopressor (06/22/20 13:00) Therapeutic Multivitamin Tab (Vitamins, (06/23/20 09:00) Prednisone Tablet (Deltasone Tablet) (06/23/20 09:00) Promethazine Injection (Phenergan Injec (06/22/20 13:00) Sodium Chloride Flush (Catheter Flush Sy (06/22/20 13:00) Sodium Chloride Flush (Catheter Flush Sy (06/22/20 13:00) Sodium Chloride Flush (Catheter Flush Sy (06/22/20 13:00) Sucralfate Tablet (Carafate Tablet) (06/22/20 13:00) Fluticasone/Salmeterol 113-14 (Airduo Re (06/22/20 21:00) Midodrine Tablet (Proamatine) (06/22/20 13:30) Miconazole 2% Powder (Desenex Af 2% Powd (06/22/20 21:00) Ondansetron Injection (Zofran Injectio (06/22/20 13:30) Phenol Throat [place] (Chloraseptic [place]) (06/22/20 13:45) Accucheck Achs ACHS (06/22/20 13:00) Insulin Aspart (Novolog) (Novolog (Charg (06/22/20 16:00) Oxycodone Immediate Rel Tablet (Oxyir Ta (06/22/20 13:00) Vancomycin Injection (Vancomycin Injecti (06/22/20 13:00) Meropenem (Merrem 1000 Mg) (06/22/20 13:00) Cbc With Automated Diff (06/22/20 13:00) Comprehensive Metabolic Panel (06/22/20 13:00) Lactic Acid Analyzer (06/22/20 13:00) Procalcitonin (Pct) (06/22/20 13:00) Venous Access Request Order (06/22/20 13:00) Blood Culture (06/22/20 13:00) Urinalysis (06/22/20 13:30) Straight Cath (Urinary) (06/22/20 13:00) Chest 1 View, Ap/Pa Only (06/22/20 13:00) Acetaminophen Tablet/Caplet (Tylenol T (06/22/20 13:15) General/Regular (06/22/20 Lunch) Patch Removal (Patch Removal) (06/22/20 21:00) Tramadol Tablet (Ultram Tablet) (06/22/20 13:15) Lorazepam Injection (Ativan Injection) (06/22/20 13:30) Hydromorphone Injection (Dilaudid Inject (06/22/20 13:30) Incentive Spirometry (Nursing) Q2H (06/22/20 13:29) Manual Differential (06/22/20 13:22) Anidulafungin Injection (Eraxis Injectio (06/22/20 14:00) Anidulafungin Injection (Eraxis Injectio (06/23/20 09:00) Vancomycin Injection (Vancomycin Injecti (06/22/20 14:00) Ns Iv 1000 Ml (Sodium Chloride 0.9%) (06/22/20 14:00) Meropenem (Merrem 500 Mg) (06/22/20 14:00) D5w 1000 Ml Iv Solution (Dextrose 5% Yolanda (06/22/20 14:00) Patient Visit (06/22/20 ) Pt Eval High Complexity (06/22/20 ) Functional Activities, Ea 15 (06/22/20 ) Vancomycin Injection (Vancomycin Injecti (06/23/20 02:00) Trough Order (Trough Order-Pharmacy Orde (06/24/20 01:00) Vancomycin,Trough (06/24/20 01:00) Albuterol/Ipra Inhalation Soln (Duoneb I (06/22/20 21:00) Svn Small Volume Nebulizer (06/22/20 14:56) Albuterol/Ipra Inhalation Soln (Duoneb I (06/22/20 15:00) Svn Small Volume Nebulizer (06/22/20 14:56) Mat Initiate Protocol (06/22/20 14:56) Isolation Central Supply Req (06/22/20 15:17) Ns Iv 1000 Ml (Sodium Chloride 0.9%) (06/22/20 17:00) Methylprednisolone Sod Succ (Solu-Medrol (06/22/20 21:00) Arterial Blood Gas (06/22/20 17:15) Arterial Blood Draw (06/22/20 16:53) Enoxaparin Injection (Lovenox Injection) (06/22/20 17:00) C Difficile Ag + Toxin A/B. (06/22/20 16:58) Saline Nasal [place] ([place] Nasal [place]) (06/22/20 17:15) C Difficile Ag + Toxin A/B. (06/22/20 17:30) Lactic Acid Analyzer (06/23/20 06:00) Procalcitonin (Pct) (06/23/20 06:00) Chest 1 View, Ap/Pa Only (06/23/20 06:47) Iron Test (Fe) (06/23/20 08:39) Patient Visit (06/23/20 ) Exercise Therap, Ea 15 Min (06/23/20 ) Ct Chest/Abdomen/Pelvis W (06/23/20 12:49) Iohexol Injection (Omnipaque 350 Mg/Ml 1 (06/23/20 15:45) Received Contrast (Hold Metformin- Contr (06/23/20 15:45) Sodium Chloride Flush (Catheter Flush Sy (06/23/20 15:45) Ns (Ivpb) (Sodium Chloride 0.9% Ivpb Bag (06/23/20 15:45) Diatrizoate Meglum/Sodium 37% (Gastrogra (06/23/20 15:45) Rehab Nursing Orders: Ongoing Assess. of Cognitive Status, Ongoing Assess. of Function Status, Bladder Management, Bladder Scan, Bladder Training, Bowel Management, Bowel Training, Disease Management & Educaiton, DVT Prophylaxis, Fall Prevention, Fluid/Electrolyte/Nutrition Mgmt, Infection Prevention, Medication Management & Education, Management of Risks & Complications, Management of Skin Intergrity, Nutrition Management, Pain Management, Patient/Family Support, Safety Management, Wound Management Intensity of Therapy to be met Patient to be seen: Min.3h per day/5 of 7d PT IPOC Problem List: Activity Tolerance, Functional Strength, Safety, Balance, Gait, Transfer, Bed Mobility, ROM Treatment Plan: Continue Plan of Care Bed Mobility, Education, Functional Activity Joni, Functional Strength, Group Therapy, Gait, Safety, Therapeutic Exercise, Transfers Treatment Duration: Jul 13, 2020 Frequency: Modified Program (IRF) (11/10) Estimated Hrs Per Day: 1.5 hours per day (1/1.5 hours per day ) OT IPOC Problems: Decreased Activ Tolerance, Decreased UE Strength, Dependent Transfers, Impaired Bed Mobility, Impaired Coordination, Impaired Funct Balance, Impaired I ADL's, Impaired Self-Care Skills, Restricted Funct UE ROM OT Treatment, Training and Edu: Yes Plan of Care: ADL Retraining, Functional Mobility, Group Exercise/Act as Ind, UE Funct Exercise/Act Treatment Duration: Jul 20, 2020 Frequency: Modified Program (IRF) (11/10) Estimated Hrs Per Day: 1.5 hours per day (1-1.5 hours/day) ST IPOC Speech Therapy Treatment Plan: Discontinue ST Treatment Duration: Jun 22, 2020 Frequency: Modified Program (IRF) Estimated Hrs Per Day: Other Gantry Rigger/Case Mgmt Gantry Rigger/Case Managemen: Discharge Planning Dietitian/Agric[employer] Commission Agent Dietitian/Agricultural Produce Commission Agent to monitor nutritional status and make changes and/or recommendations as needed and work with speech pathology on dietary upgrades as the occur. Physician IPOC Medical Issues being managed closely and that require the 24 hour availability of a physician: Recent catastrophic surgical complications with abscesses in peritoneal cavity now with sepsis on admit s/p IVF and IV abx and general surgery consultations at high risk for decompensation. Medical Issues: Bowel/Bladder Function, DVT Prophylaxis, Falls Precautions, Fluid/Electrolyte/Nutrition Balance, Infection Protection, Pain Management, Wound Care Brief Synthesis of Preadmission Screen, Post-Admission Evaluation, and Therapy Evaluations: PT OT will focus on regaining strength in myopathy from critical illness and regain enough function in order to return to independent living Medical Prognosis: 21 days Anticipated Length of Stay: MAURICIO Dove DO Jun 23, 2020 08:38
--- NOTE | 2020-06-23 08:38 | PM&R Progress Note ---
Subjective HPI/CC On Admission Date Seen by Provider: Jun 23, 2020 Time Seen by Provider: 11:00 Subjective/Events-last exam 06/23/20: Complex issues include PNA dx with sepsis now LA normal after IVF CT scans will be ordered after I spoke to Dr Shanti ROMANO contrast used in CT scan C diff negative D5 at 30cc/hr ordered DC NS IVF to prevent overload since she has edema from low albumin Checked meds and labs Complex med management required She feels better and looks better today after IVF CT scan reviewed after completed and appears to have multiple abscesses Review of Systems General: Fatigue, Malaise Gastrointestinal: Abdominal Pain Focused Exam Lactate Level 06/22/20 15:20: Lactic Acid Level 2.53*H 06/22/20 18:20: Lactic Acid Level 2.30*H 06/23/20 06:00: Lactic Acid Level 0.99 Lactic Acid Level Objective Exam Vital Signs Vital Signs Date Time Temp Pulse Resp B/P (MAP) Pulse Ox O2 Delivery O2 Flow Rate FiO2 06/23/20 18:39 99 06/23/20 18:34 Room Air 06/23/20 16:14 35.4 90 18 125/69 (87) 06/22/20 14:46 21 Capillary Refill : General Appearance: No Apparent Distress, Anxious, Chronically ill, Thin HEENT: PERRL/EOMI, Normal ENT Inspection, Pharynx Normal Neck: Full Range of Motion, Normal Inspection, Non Tender, Supple, Carotid Brui t Respiratory: Chest Non Tender, Lungs Clear, No Accessory Muscle Use, No Resp iratory Distress, Decreased Breath Sounds Cardiovascular: Regular Rate, Rhythm, No Edema, No Gallop, No JVD, No Murmur, Normal Peripheral Pulses, Tachycardia Gastrointestinal: Normal Bowel Sounds, No Organomegaly, No Pulsatile Mass, Non Tender, Soft Back: Normal Inspection, No CVA Tenderness, No Vertebral Tenderness Extremity: Normal Capillary Refill, Normal Inspection, Normal Range of Motion, Non Tender, No Calf Tenderness, No Pedal Edema Neurologic/Psychiatric: Alert, Oriented x3, No Motor/Sensory Deficits, Normal Mood/Affect, bearing maker II-XII Norm as Tested, Depressed Affect, Motor Weakness (all extremities) Skin: Normal Color, Cool Lymphatic: No Adenopathy Results/Procedures Lab Laboratory Tests 06/23/20 06:00 Patient resulted labs reviewed. FIM Transfers Therapy Code Descriptions/Definitions Functional [place] Measure: 0=Not Assessed/NA 4=Minimal Assistance 1=Total Assistance 5=Supervision or Setup 2=Maximal Assistance 6=Modified [place] 3=Moderate Assistance 7=Complete IndependenceSCALE: Activities may be completed with or without assistive devices. 1-Geinibdrvb-rjpejrx completes the activity by him/herself with no assistance from a helper. 5-Set-up or Clean-up Assistance-helper sets up or cleans up; patient completes activity. [place] assists only prior to or following the activity. 4-Supervision or Touching Assistance-helper provides verbal cues and/or touching/steadying and/or contact guard assistance as patient completes activity. Assistance may be provided throughout the activity or intermittently. 3-Partial/Moderate Assistance-helper does LESS THAN HALF the effort. [place] lifts, holds or supports trunk or limbs, but provides less than half the effort. 2-Substantial/Maximal Assistance-helper does MORE THAN HALF the effort. [place] lifts or holds trunk or limbs and provides more than half the effort. 1-Pqkbnxdrq-udzxtl does ALL the effort. Patient does none of the effort to complete the activity. Or, the assistance of 2 or more helpers is required for the patient to complete the activity. If activity was not attempted, code reason: 7-Patient Refused. 9-Not Applicable-not attempted and the patient did not perform the activity before the current illness, exacerbation or injury. 10-Not Attempted due to Environmental Limitations-(lack of equipment, weather restraints, etc.). 88-Not Attempted due to Medical Conditions or Safety Concerns. Roll Left to Right (QC): 1 Sit to Lying (QC): 1 Sit to Stand (QC): 88 Chair/Vwu-kw-Qvtdn Xfer(QC): 1 Car Transfer (QC): 88 Gait Training Does the Patient Walk?: No and Walking Goal IS indicated Walk 10 feet (QC): 88 Walk 50 ft with 2 Turns(QC): 88 Walk 150 ft (QC): 88 Walking 10ft/uneven surface-QC: 88 Wheelchair Training Wheel 50 ft with 2 turns (QC): 88 Wheel 150 ft (QC): 88 Stair Training 1 Step (curb) (QC): 88 4 Steps (QC): 88 12 Steps (QC): 88 Balance Picking up an Object (QC): 88 ADL-Treatment Eating (QC): 5 Oral Hygiene (QC): 5 Shower/Bathe Self (QC): 1 (Assist x2 for sponge bath at bed level) Upper Body Dressing (QC): 2 (Based on clinical judgement, pt would require max A with task.) Lower Body Dressing (QC): 1 (Based on clinical judgement, pt would require assist x2 and assist with all parts.) On/Off Footwear (QC): 1 (Total sasist donning/doffing gripper socks) Toileting Hygiene (QC): 1 (Assist x2 at bed level for rolling side to side.) Assessment/Plan Assessment and Plan Assess & Plan/Chief Complaint Assessment: Severe disuse myopathy Acute sepsis PNA COPD Hypothyroidism Ileostomy in place s/p perforated duodenal ulcer s/p clamp per Dr Ronald Wooten s/p peritonitis Tachycardia COVID-19 negative swab at [facility] at [facility] for 3 weeks Peritoneal abscesses on CT scan 06/23/20 Plan: Broad spectrum abx IVF Monitor closely Pain meds Check C diff Check ABG Consult Dr Moser 06/23/20: IV abx Monitor closely CT scan reviewed (1) Myopathy (2) Ileostomy in place (3) Sepsis (4) Tachycardia (5) Lactic acid acidosis (6) Duodenal ulcer (7) History of peritonitis (8) Hypothyroidism (9) Leukocytosis (10) Anemia (11) COPD (chronic obstructive pulmonary disease) MAURICIO NUNES DO Jun 23, 2020 08:38
[2020-06-23] MEDS ORDERED: LIDOCAINE 4% (SALONPAS) PATCH TP SCH (09:00)
[2020-06-23] MEDS ORDERED: predniSONE 10 MG TAB PO SCH (09:00)
--- NOTE | 2020-06-23 09:20 | Diagnostic Imaging Report ---
Clinical indications: Followup fever. Exam: Portable chest x-ray upright view. Comparisons: Chest x-ray dated 06/22/2020. Findings: There is interval progression of lung infiltrates involving the right midlung field, right upper lobe region. There is stable increased lung markings involving the periphery of the left midlung field region. There is no pleural effusion or pneumothorax. Pulmonary vasculature and cardiac silhouette is within normal limits for portable projection. Stable mild elevation of the right hemidiaphragm. Left PICC line has been placed in interim with tip in the high right atrium. The remainder of this exam shows no significant interval change compared to the prior study of comparison. IMPRESSION: 1: Interval placement left PICC line with tip in the high right atrial region on this portable exam. Chest x-ray 2 views with good inspiratory effort may put the PICC line in better position and would better evaluate for true positioning. 2: There is interval progression of right midlung field right upper lobe infiltrates. There is stable curvilinear opacities in the left lung region. Dictated by: Dictated on workstation # [id number]
[2020-06-23] MEDS: polyethylene glycoL POWDER 17 GM (MIRALAX) PACK PO SCH ×2 (09:30→21:58)
[2020-06-23] MEDS: DOCUSATE SODIUM 100 MG (COLACE) CAP PO SCH ×2 (09:30→21:51)
[2020-06-23] MEDS: SENNA W/DOCUSATE (SENOKOT S) TABLET PO SCH ×2 (09:30→21:51)
--- NOTE | 2020-06-23 11:07 | Physical Therapy Daily Note ---
PT Daily Note-Current Subjective Pt supine in bed upon arrival. Agrees to PT tx. Pain Numeric Pain Scale: 0-No Pain Location: No Pain Reported Comment: Pt c/o no pain but moans and yells out during therapy tx. Mental Status Patient Orientation: Person, Situation Attachments: Colostomy/Ileostomy, Drains Transfers SCALE: Activities may be completed with or without assistive devices. 6-Ubpwykpgab-ysjefve completes the activity by him/herself with no assistance from a helper. 5-Set-up or Clean-up Assistance-helper sets up or cleans up; patient completes activity. [place] assists only prior to or following the activity. 4-Supervision or Touching Assistance-helper provides verbal cues and/or touching/steadying and/or contact guard assistance as patient completes activity. Assistance may be provided throughout the activity or intermittently. 3-Partial/Moderate Assistance-helper does LESS THAN HALF the effort. [place] lifts, holds or supports trunk or limbs, but provides less than half the effort. 2-Substantial/Maximal Assistance-helper does MORE THAN HALF the effort. [place] lifts or holds trunk or limbs and provides more than half the effort. 5-Yjyoiheni-jrjlhv does ALL the effort. Patient does none of the effort to complete the activity. Or, the assistance of 2 or more helpers is required for the patient to complete the activity. If activity was not attempted, code reason: 7-Patient Refused. 9-Not Applicable-not attempted and the patient did not perform the activity before the current illness, exacerbation or injury. 10-Not Attempted due to Environmental Limitations-(lack of equipment, weather restraints, etc.). 88-Not Attempted due to Medical Conditions or Safety Concerns. Roll Left & Right (QC): 2 Weight Bearing Weight Bearing/Tolerated Weight Bearing/Tolerated Exercises Supine Ex: Ankle pumps, Quad Set, Glut sets Supine Reps: 20 (x2) Treatments Pt completes supine ex in bed; requires ample time to complete. RN in room to empty colostomy/IIeostomoy. D/t increase risk of developing pressure sores, RN asked for assistance w/ repositioning pt to L side. DIRECTOR OF MIDWIFERY/STAFF MIDWIFE explains to pt the proper sequencing. Pt, RN and DIRECTOR OF MIDWIFERY/STAFF MIDWIFE began to initiate rolling to the L; RN had hands on pad under pt. Pt immediately began yelling that RN was pushing against pt abscess. DIRECTOR OF MIDWIFERY/STAFF MIDWIFE and RN assured pt that RN had ahold of the pad under pt. Pt, RN and DIRECTOR OF MIDWIFERY/STAFF MIDWIFE began to initiate rolling again; chcf onto pt L side pt began yelling out at DIRECTOR OF MIDWIFERY/STAFF MIDWIFE and RN. RN and DIRECTOR OF MIDWIFERY/STAFF MIDWIFE had ahold of pad under pt and were not touching pt. Pt positioned on left side w/ pillow behind back, booties on BLE's. Pt on L side w/ bedside table and call light w/in reach and all needs met. Assessment Current Status: Poor Progress Pt unmotivated, requires ample time to complete ex, moans constantly throughout tx but c/o no pain until turning. PT Short Term Goals Short Term Goals Time Frame: Jun 29, 2020 Roll Left & Right: 4 Sit to lyin Lying to sitting on side of be: 4 Sit to stand: 3 Chair/hud-jf-wilfp transfer: 3 Toilet transfer: 3 Car transfer: 3 Walk 10 feet: 3 Walk 50 feet with two turns: 3 Walk 150 feet: 3 Walking 10ft on uneven surface: 3 1 step (curb): 3 4 steps: 3 12 steps: 3 Picking up objects: 3 PT Defence Intelligence Analyst Goals [facility] Goals PT Defence Intelligence Analyst Goals Time Frame: Jul 13, 2020 Roll Left & Right (QC): 6 Sit to Lying (QC): 6 Lying-Sitting on Side/Bed(QC): 6 Sit to Stand (QC): 6 Chair/Ihq-ww-Ymbey Xfer(QC): 6 Toilet Transfer (QC): 6 Car Transfer (QC): 6 Does the Patient Walk: No and Walking Goal IS indicated Walk 10 feet (QC): 4 Walk 50ft with 2 Turns (QC): 4 Walk 150 ft (QC): 4 Walking 10ft on Uneven Surface: 4 1 Step (curb) (QC): 4 4 Steps (QC): 4 12 Steps (QC): 4 Picking up an Object (QC): 4 Wheel 50 feet with 2 turns (QC: 6 Type: Manual Wheel 150 feet: 6 PT Plan Problem List Problem List: Activity Tolerance, Functional Strength, Safety, Balance, Gait, Transfer, Bed Mobility, ROM Treatment/Plan Treatment Plan: Continue Plan of Care Treatment Plan: Bed Mobility, Education, Functional Activity Joni, Functional Strength, Group Therapy, Gait, Safety, Therapeutic Exercise, Transfers Treatment Duration: Jul 13, 2020 Frequency: Modified Program (IRF) (11/10) Estimated Hrs Per Day: 1.5 hours per day (1/1.5 hours per day ) Patient and/or Family Agrees t: Yes Safety Risks/Education Patient Education: Correct Positioning, Safety Issues Teaching Recipient: Patient Teaching Methods: Discussion Response to Teaching: Verbalize Understanding, Reinforcement Needed Time/GCodes Time In: 1016 Time Out: 1034 Total Billed Treatment Time: 18 Total Billed Treatment 1, EX x1(15m) EVY CRUZ DIRECTOR OF MIDWIFERY/STAFF MIDWIFE Jun 23, 2020 11:07
--- NOTE | 2020-06-23 11:15 | Progress Note - Surgery ---
TATYANA ARNDT MED STUDENT 06/23/20 1115: Subjective Date Seen by a Provider: Jun 23, 2020 Time Seen by a Provider: 09:00 Subjective/Events-last exam Patient is awake and sitting up in chair this morning. States that she feels that she has a fever but is not in any pain. She is eating, no difficulties swallowing or nausea/vomiting. Ostomy is in place and working. She has another ostomy bag on to drain. She is doing PT, using IS. She complains of some reflux. Review of Systems General: Chills, Malaise HEENT: No Head Aches, No Visual Changes Pulmonary: No Dyspnea, No Cough Cardiovascular: No: Chest Pain, Palpitations Gastrointestinal: No: Nausea, Vomiting, Abdominal Pain Musculoskeletal: No: leg pain Focused Exam Lactate Level 06/22/20 15:20: Lactic Acid Level 2.53*H 06/22/20 18:20: Lactic Acid Level 2.30*H 06/23/20 06:00: Lactic Acid Level 0.99 Objective Exam Vital Signs Date Time Temp Pulse Resp B/P (MAP) Pulse Ox O2 Delivery O2 Flow Rate FiO2 06/23/20 09:00 94 Room Air 06/23/20 08:34 37.4 114 18 110/55 (73) 06/23/20 06:53 96 Room Air 06/23/20 06:00 36.4 104 20 104/61 (75) 96 Room Air 06/22/20 21:00 94 Room Air 06/22/20 20:00 37.2 06/22/20 18:38 37.6 06/22/20 18:38 94 Room Air 06/22/20 16:00 37.7 136 20 111/73 (86) 92 06/22/20 15:00 38.0 122 20 118/62 (80) 94 Room Air 06/22/20 14:58 94 Room Air 06/22/20 14:46 144 94 21 06/22/20 14:00 38.6 128 20 122/60 (80) 95 Room Air 06/22/20 13:00 38.9 120 20 128/66 (86) 95 Room Air 06/22/20 12:54 97 Room Air 06/22/20 12:00 38.6 116 20 129/69 (89) 96 Room Air I & O 06/23/20 07:00 Intake Total 3297.5 ml Output Total 972 ml Balance 2325.5 ml Capillary Refill : General Appearance: No Apparent Distress, Thin Respiratory: Chest Non Tender, Lungs Clear, Normal Breath Sounds, No Accessory Muscle Use, No Respiratory Distress Cardiovascular: Regular Rate, Rhythm, No Edema, No Gallop, No JVD, No Murmur, Normal Peripheral Pulses, Tachycardia Peripheral Pulses: 2+ Radial Pulses (R), 2+ Radial Pulses (L) Gastrointestinal: abnormal bowel sounds (decreased); No distended; other (pt has an ileostomy close to umbilicus in RLQ, she has a wound dehiscence in mi dline incision above umbilicus - unsure what is in opening, does not look like bowel. In her right flank she has another ostomy bag and then a drain, as well as a drain in the RUQ) Extremity: Non Tender, No Calf Tenderness, No Pedal Edema Neurologic/Psychiatric: Alert, Oriented x3 Skin: Normal Color, Warm/Dry Lymphatic: No Adenopathy Results Lab Laboratory Tests 06/22/20 13:22: White Blood Count 18.1H, Red Blood Count 4.06, Hemoglobin 10.8L, Hematocrit 35, Mean Corpuscular Volume 86, Mean Corpuscular Hemoglobin 27, Mean Corpuscular Hemoglobin Concent 31L, Red Cell Distribution Width 19.9H, Platelet Count 442H, Mean Platelet Volume 9.8, Immature Granulocyte % (Auto) 10, Neutrophils (%) (Auto) 70, Lymphocytes (%) (Auto) 14, Monocytes (%) (Auto) 5, Eosinophils (%) (Auto) 0, Basophils (%) (Auto) 0, Neutrophils # (Auto) 12.7H, Lymphocytes # (Auto) 2.6, Monocytes # (Auto) 1.0, Eosinophils # (Auto) 0.1, Basophils # (Auto) 0.0, Immature Granulocyte # (Auto) 1.8H, Neutrophils % (Manual) 53, Lymphocytes % (Manual) 19, Monocytes % (Manual) 5, Band Neutrophils 23, Polychromasia SLIGHT, Poikilocytosis SLIGHT, Anisocytosis MODERATE, Microcytosis SLIGHT, Ma crocytosis SLIGHT, Sodium Level 131L, Potassium Level 4.7, Chloride Level 99, Carbon Dioxide Level 22, Anion Gap 10, Blood Urea Nitrogen 15, Creatinine 0.48L, Estimat Glomerular Filtration Rate > 60, BUN/Creatinine Ratio 31, Glucose Level 67L, Lactic Acid Level 2.96*H, Calcium Level 9.5, Corrected Calcium 10.2H, Total Bilirubin 0.4, Aspartate Amino Transf (AST/SGOT) 18, Alanine Aminotransferase (ALT/SGPT) 27, Alkaline Phosphatase 248H, Total Protein 6.1L, Albumin 3.1L, Procalcitonin 0.18H 06/22/20 13:30: Urine Color YELLOW, Urine Clarity CLEAR, Urine pH 5.5, Urine Specific [place] 1.025H, Urine Protein TRACEH, Urine Glucose (UA) NEGATIVE, Urine Ketones NEGA TIVE, Urine Nitrite NEGATIVE, Urine Bilirubin NEGATIVE, Urine Urobilinogen 0.2, Urine Leukocyte Esterase NEGATIVE, Urine RBC (Auto) NEGATIVE, Urine RBC NONE, Urine WBC 0-2, Urine Squamous Epithelial Cells 0-2, Urine Crystals NONE, Urine Bacteria TRACE, Urine Casts NONE, Urine Mucus SMALLH, Urine Culture Indicated NO 06/22/20 15:20: Lactic Acid Level 2.53*H 06/22/20 15:44: Glucometer 77 06/22/20 17:15: Blood Gas Puncture Site LR, Blood Gas Patient Temperature 36.8, Arterial Blood pH 7.40, Arterial Blood Partial Pressure CO2 32L, Arterial Blood Partial P ressure O2 85, Arterial Blood HCO3 20L, Arterial Blood Total CO2 20.5L, Arterial Blood Oxygen Saturation 97, Arterial Blood Base Excess -4.4L, Joey Test YES- POS, Blood Gas Ventilator Setting NO, Blood Gas Inspired Oxygen RA 06/22/20 18:20: Lactic Acid Level 2.30*H 06/22/20 20:05: Glucometer 95 06/23/20 06:00: Lactic Acid Level 0.99, White Blood Count 21.0H, Red Blood Count 3.13L, Hemoglobin 8.5#L, Hematocrit 27L, Mean Corpuscular Volume 85, Mean Corpuscular Hemoglobin 27, Mean Corpuscular Hemoglobin Concent 32, Red Cell Distribution Width 20.0H, Platelet Count 322, Mean Platelet Volume 9.9, Immature Granulocyte % (Auto) 10, Neutrophils (%) (Auto) 71, Lymphocytes (%) (Auto) 13, Monocytes (%) (Auto) 5, Eosinophils (%) (Auto) 0, Basophils (%) (Auto) 0, Neutrophils # (Auto) 15.0H, Lymphocytes # (Auto) 2.7, Monocytes # (Auto) 1.1H, Eosinophils # (Auto) 0.1, Basophils # (Auto) 0.0, Immature Granulocyte # (Auto) 2.1H, Sodium Level 130L, Potassium Level 3.9, Chloride Level 103, Carbon Dioxide Level 20L, Anion Gap 7, Blood Urea Nitrogen 13, Creatinine 0.43L, Estimat Glomerular Filtration Rate > 60, BUN/Creatinine Ratio 30, Glucose Level 68L, Calcium Level 8.1L, Corrected Calcium 9.5, Total Bilirubin 0.5, Aspartate Amino Transf (AST/SGOT) 14, Alanine Aminotransferase (ALT/SGPT) 24, Alkaline Phosphatase 213H, Total Protein 4.5L, Albumin 2.2L, Procalcitonin 0.85H 06/23/20 09:44: Glucometer 103 Microbiology 06/22/20 C. difficile GDH Antigen & Toxins - Final, Complete Assessment/Plan Assessment/Plan Assessment/Plan Abdominal/Flank Abscess - Right Ileostomy status Wound dehiscence -Get previous CT and Op reports. Possibly may need to get a new CT if old reports cannot be obtained. -WBC improved to 18 from 21 -Stool culture positive for Cdiff -Pt complaining of no pain -Has had some PO foods today -Continue ABX Malnutrition -Prefer PO nutrition -Patient is eating normal diet, said her stomach is shrunk due to not eating for a while, will hopefully become easier for her to eat larger meals Pneumonia -Continue ABX ANDER MOSER DO 06/23/20 1549: Subjective Time Seen by a Provider: 12:54 Subjective/Events-last exam Pt seen and examined, no changes from yesterday. Pt has some "reflux" but is not really complaining of abdominal pain. Nurse states that from bag and 2 drains, she has gotten appx 200ml out. Review of Systems General: Chills, Malaise HEENT: No Head Aches, No Visual Changes Pulmonary: No Dyspnea, No Cough Cardiovascular: No: Chest Pain, Palpitations Gastrointestinal: No: Nausea, Vomiting, Abdominal Pain Objective Exam General Appearance: No Apparent Distress HEENT: PERRL/EOMI, Moist Mucous Membranes Respiratory: Lungs Clear, Normal Breath Sounds, No Accessory Muscle Use, No Respiratory Distress Cardiovascular: No Murmur, Tachycardia Gastrointestinal: no organomegaly; No distended; other (pt has an ileostomy close to umbilicus in RLQ, she has a wound dehiscence in midline incision above umbilicus - unsure what is in opening, does not look like bowel. In her right flank she has another ostomy bag and then a drain, as well as a drain in the RUQ) Extremity: No Calf Tenderness, No Pedal Edema Neurologic/Psychiatric: Alert, Oriented x3 Assessment/Plan Assessment/Plan Assessment/Plan Abdominal/Flank Abscess - Right Ileostomy status Wound dehiscence Unable to get old reports or CT films; IM would like to get CT for pneumonia and work-up fever of unknown origin. Will add Abd/Pelvis with IV and Oral contrast to CT. Hopefully then we will be able to get better idea of what is going on in abdomen. Would still be beneficial to get all of the old op-reports. Supervisory-Addendum Brief Verification & Attestation Participated in pt care: history, MDM, physical Personally performed: exam, history, MDM Care discussed with: Medical Student Procedures: n/a Verification and Attestation of Medical Student E/M Service A medical student performed and documented this service. I then reviewed and verified all information documented by the medical student and made modifications to such information, when appropriate. I personally performed a physical exam, medical decision making and then discussed any differences betwee n the notes and made revisions as necessary to create one note. Ander Moser , 06/23/20 , 15:50 TATYANA ARNDT MED STUDENT Jun 23, 2020 11:15 ANDER MOSER DO Jun 23, 2020 15:49
[2020-06-23] MEDS: D5W 1000 ML IV SOLUTION 1,000 ML IV SCH (14:42)
[2020-06-23] MEDS ORDERED: HOLD METFORMIN - RECEIVED CONTRAST 20 ML VIAL IV SCH (15:45)
[2020-06-23] MEDS ORDERED: DIATRIZOATE MEGLUM/SODIUM 37% 120 ML (GASTROGRAFIN) PO ONE (15:45)
[2020-06-23] MEDS ORDERED: IOHEXOL 350 MG/ML 100 ML (OMNIPAQUE 350) VIAL IV ONE ×2 (15:45→16:30)
[2020-06-23] MEDS ORDERED: NS 100 ML (IVPB) BAG IV ONE (15:45)
[2020-06-23] MEDS ORDERED: CATHETER FLUSH 10 ML SYR IV PRN (15:45)
[2020-06-23 16:14] VITALS: BP 125/69
[2020-06-23] MEDS: ENOXAPARIN 40 MG/0.4 ML (LOVENOX) SYR SC SCH (17:21)
[2020-06-23] MEDS: FLUTICASONE/SALMETEROL 113-14 (AIRDUO RespiCLICK) IH SCH (18:39)
--- NOTE | 2020-06-23 19:22 | Diagnostic Imaging Report ---
EXAMINATION: CT chest, abdomen and pelvis with intravenous contrast. TECHNIQUE: Multiple contiguous axial images were obtained through the chest, abdomen and pelvis after the uneventful administration of intravenous contrast. All CT scans use one or more of the following dose optimizing techniques: automated exposure control, MA and/or KvP adjustment based on patient size and exam type or iterative reconstruction. HISTORY: Fever. COMPARISON: Chest radiograph 06/23/2020. FINDINGS: Thyroid: The thyroid gland is nonvisualized. Mediastinum: Heart size is normal without significant pericardial effusion. The aorta is normal in caliber. No suspicious lymphadenopathy. Lungs and airways: There are groundglass opacities and reticulation within the bilateral upper lobes predominantly. Minimal reticular appearance and groundglass within the lung bases with small subpleural cystic change. No focal consolidation, pleural effusion or pneumothorax. No suspicious pulmonary mass. Small bronchiectasis within the bilateral upper lobes. The airways are patent. Solid organs: The liver is normal without focal lesion. Multiple layering hyperdense stones within the gallbladder. There is no biliary ductal dilation. Pancreas is normal. Spleen is normal. Adrenal glands are normal. The kidneys are normal without hydronephrosis. Bowel: Surgical changes from colon resection with a right lower quadrant ostomy. No bowel obstruction. Peritoneum: There is a percutaneous drain present within the anterior upper abdomen. There is a multiloculated air and fluid collection within the right abdomen extending into the right lower quadrant and pelvis. A drainage catheter is present within the right lower quadrant. The largest measurable pocket of fluid measures 7.6 x 4.6 cm on (series 2 image 93). No comparison imaging is available. There is a mild amount of fluid along the left upper quadrant along the margin of the spleen. No suspicious lymphadenopathy. Vasculature: Normal without aneurysm. Musculoskeletal: No suspicious osseous lesion or compression fracture. There is extensive subcutaneous edema and emphysema overlying the right flank. There is a loculated air and fluid collection within the subcutaneous soft tissues near the percutaneous catheter measuring 7.8 x 3.6 cm. There is a loculated air-fluid collection in the right groin measuring 4.7 x 3.9 cm. Surgical changes of the anterior abdominal wall with wound dehiscence along the midline. Pelvis: The uterus is surgically absent. No adnexal mass. The urinary bladder is normal. IMPRESSION: 1. Multiloculated air and fluid collections within the right lower quadrant extending along the pelvic sidewall into the right pelvis. A drainage catheter is present within the superior most aspect of this fluid collection. 2. Air-fluid collection within the right flank subcutaneous tissues as well as within the right groin. These findings are concerning for multifocal abscesses. 3. Bilateral upper lobe reticulation and groundglass opacities concerning for atypical infection or fibrosis/scarring from prior infection. Dictated by: Dictated on workstation # [id number]
[2020-06-23 20:00] VITALS: BP 106/61
[2020-06-23] MEDS: LIDOCAINE PATCH REMOVAL TP SCH (21:00)
[2020-06-23] MEDS ORDERED: NS IV 1000 ML 1,000 ML IV SCH (22:15)
[2020-06-24] MEDS ORDERED: TROUGH ORDER-PHARMACY XX NR (01:00)
[2020-06-24] MEDS: SUCRALFATE 1 GM (CARAFATE) TAB PO SCH ×3 (01:06→06:33)
[2020-06-24] MEDS: CATHETER FLUSH 10 ML SYR IV SCH (01:06)
[2020-06-24] MEDS: MEROPENEM 500 MG/SWFI 10 ML IV PUSH IV SCH ×4 (01:06→08:06)
[2020-06-24] MEDS: VANCOMYCIN 1250 MG/NS 250 ML IVPB IV SCH ×2 (02:58)
[2020-06-24] MEDS: LEVOTHYROXINE 100 MCG (LEVOTHROID) TAB PO SCH (05:37)
[2020-06-24 05:38] VITALS: BP 111/59
[2020-06-24 05:52] LABS: BASOPHILS % (AUTO) 0 % (0-10); EOSINOPHILS % (AUTO) 0 % (0-10); HEMATOCRIT 25 % (35-52); HEMOGLOBIN 7.7 g/dL (11.5-16.0); LYMPHOCYTES # (AUTO) 1.5 10^3/uL (1.0-4.0); LYMPHOCYTES % (AUTO) 10 % (12-44); MEAN CORPUSCULAR HEMOGLOBIN 27 pg (25-34); MEAN CORPUSCULAR HGB CONC 31 g/dL (32-36); MEAN CORPUSCULAR VOLUME 86 fL (80-99); MEAN PLATELET VOLUME 9.7 fL (9.0-12.2); MONOCYTES # (AUTO) 0.6 10^3/uL (0.0-1.0); MONOCYTES % (AUTO) 4 % (0-12); NEUTROPHILS # (AUTO) 11.2 10^3/uL (1.8-7.8); NEUTROPHILS % (AUTO) 75 % (42-75); PLATELET COUNT 318 10^3/uL (130-400); WHITE BLOOD COUNT 14.8 10^3/uL (4.3-11.0)
[2020-06-24 06:03] LABS: ALBUMIN 2.3 GM/DL (3.2-4.5); CHLORIDE 104 MMOL/L (98-107); POTASSIUM 4.2 MMOL/L (3.6-5.0); SODIUM 134 MMOL/L (135-145)
[2020-06-24 06:05] LABS: CALCIUM 8.6 MG/DL (8.5-10.1)
[2020-06-24 06:06] LABS: GLUCOSE 160 MG/DL (70-105); TOTAL PROTEIN 4.7 GM/DL (6.4-8.2)
[2020-06-24 06:07] LABS: CARBON DIOXIDE 20 MMOL/L (21-32)
[2020-06-24 06:08] LABS: BILIRUBIN,TOTAL 0.2 MG/DL (0.1-1.0)
[2020-06-24 06:09] LABS: ALKALINE PHOSPHATASE 182 U/L (40-136); CREATININE SERUM 0.47 MG/DL (0.60-1.30); GFR ESTIMATED > 60
[2020-06-24 06:10] LABS: BUN/CREATININE RATIO 21
[2020-06-24 06:12] LABS: ALANINE AMINOTRANSFERASE 19 U/L (0-55)
[2020-06-24] MEDS: inSUlin ASPART (NovoLOG) 1 UNIT/0.01 ML (CHARGE PER UNIT) SC SCH (06:20)
[2020-06-24] MEDS: methylPREDNISolone 40 MG/ML (Solu-MEDROL) VIAL IV SCH (08:06)
[2020-06-24] MEDS: MICONAZOLE 2% POWDER (DESENEX AF) 90 GM TOP SCH (08:06)
[2020-06-24] MEDS: DICLOFENAC 1% GEL 100 GM (VOLTAREN) TUBE TOP SCH (08:06)
[2020-06-24] MEDS: ANIDULAFUNGIN INJECTION 100 MG in NS (IVPB) 100 ML IV SCH (08:06)
[2020-06-24] MEDS: SENNA W/DOCUSATE (SENOKOT S) TABLET PO SCH (08:07)
[2020-06-24] MEDS: LACTOBACILLUS ACIDOPHILUS (PROBIOTIC) CAPSULE PO SCH (08:07)
[2020-06-24] MEDS: MULTIVIT W/MINERALS TAB (THERAGRAN M) PO SCH (08:07)
[2020-06-24] MEDS: FAMOTIDINE 20 MG (PEPCID) TABLET PO SCH (08:07)
[2020-06-24] MEDS: DOCUSATE SODIUM 100 MG (COLACE) CAP PO SCH (08:07)
[2020-06-24] MEDS: FLUTICASONE/SALMETEROL 113-14 (AIRDUO RespiCLICK) IH SCH (08:08)
[2020-06-24] MEDS: RT-ALBUTEROL/IPRATROPIUM 3 ML (DUONEB) VIAL INH SCH (08:10)
[2020-06-24] MEDS ORDERED: NS IV 1000 ML 1,000 ML IV SCH (08:45)
--- NOTE | 2020-06-24 11:20 | Discharge Summary ---
Diagnosis/Chief Complaint Date of Admission Jun 22, 2020 at 12:00 Date of Discharge Jun 24, 2020 at 09:09 Discharge Diagnosis Assessment: Severe disuse myopathy Acute sepsis PNA COPD Hypothyroidism Ileostomy in place s/p perforated duodenal ulcer s/p clamp per Dr Cardenas [facility] [place] s/p peritonitis Tachycardia COVID-19 negative swab at [facility] FUO at [facility] for 3 weeks Peritoneal abscesses on CT scan 06/23/20 Plan: Broad spectrum abx IVF Monitor closely Pain meds Check C diff Check ABG Consult Dr Moser 06/23/20: IV abx Monitor closely CT scan reviewed (1) Myopathy (2) Ileostomy in place (3) Sepsis (4) Tachycardia (5) Lactic acid acidosis (6) Duodenal ulcer (7) History of peritonitis (8) Hypothyroidism (9) Leukocytosis (10) Anemia (11) COPD (chronic obstructive pulmonary disease) Discharge Summary Discharge Physical Examination Allergies: Coded Allergies: Penicillins (Verified Allergy, Unknown, 06/22/20) Vitals & I&Os Vital Signs Date Time Temp Pulse Resp B/P (MAP) Pulse Ox O2 Delivery O2 Flow Rate FiO2 06/24/20 09:00 94 Room Air 06/24/20 05:38 36.3 75 18 111/59 (76) 06/22/20 14:46 21 General Appearance: Alert, Oriented X3, Cooperative Respiratory: Clear to Auscultation Cardiovascular: Regular Rate Psych/Mental Status: Mental Status NL Hospital Course Was the Problem List Reviewed?: Yes Short IRF course before transferring to ICU due to severe anemia and elevated lactic acid and multiple peritoneal abscesses on CT scan after [facility] declined transfer and suggested to move to [facility] with Dr Magallanes the original surgeon but she needed higher level of care and he declined the transfer. Patient had been dx with sepsis upon arrival for IRF with 101.4 fever and elevated wbc requiring broad spectrum abx and IVF. Apparently she had FUO for 3 weeks and placed on broad spectrum abx in the meantime per Dr Palacios. Dr Moscoso had conferred with Dr Magallanes and Dr Cardenas and radiologist reviewed the CT scan confirming possible contrast communicating with the peritoneal abscess so she was moved to ICU and Gladis Moser and [place] will confer to evaluate the best approach for abscess wash out and revision and will transfuse 1 unit of blood and will monitor for readmit to IRF once medically stable. Labs (last 24 hrs) Laboratory Tests 06/22/20 13:22: White Blood Count 18.1H, Red Blood Count 4.06, Hemoglobin 10.8L, Hematocrit 35, Mean Corpuscular Volume 86, Mean Corpuscular Hemoglobin 27, Mean Corpuscular Hemoglobin Concent 31L, Red Cell Distribution Width 19.9H, Platelet Count 442H, Mean Platelet Volume 9.8, Immature Granulocyte % (Auto) 10, Neutrophils (%) (Auto) 70, Lymphocytes (%) (Auto) 14, Monocytes (%) (Auto) 5, Eosinophils (%) (Auto) 0, Basophils (%) (Auto) 0, Neutrophils # (Auto) 12.7H, Lymphocytes # (Auto) 2.6, Monocytes # (Auto) 1.0, Eosinophils # (Auto) 0.1, Basophils # (Auto) 0.0, Immature Granulocyte # (Auto) 1.8H, Neutrophils % (Manual) 53, Lymphocytes % (Manual) 19, Monocytes % (Manual) 5, Band Neutrophils 23, Polychromasia SLIGHT, Poikilocytosis SLIGHT, Anisocytosis MODERATE, Microcytosis SLIGHT, Macrocytosis SLIGHT, Sodium Level 131L, Potassium Level 4.7, Chloride Level 99, Carbon Dioxide Level 22, Anion Gap 10, Blood Urea Nitrogen 15, Creatinine 0.48L, Estimat Glomerular Filtration Rate > 60, BUN/Creatinine Ratio 31, Glucose Level 67L, Lactic Acid Level 2.96*H, Calcium Level 9.5, Corrected Calcium 10.2H, Iron Level 27L, Total Bilirubin 0.4, Aspartate Amino Transf (AST/SGOT) 18, Alanine Aminotransferase (ALT/SGPT) 27, Alkaline Phosphatase 248H, Total Protein 6.1L, Albumin 3.1L, Procalcitonin 0.18H 06/22/20 13:30: Urine Color YELLOW, Urine Clarity CLEAR, Urine pH 5.5, Urine Specific [place] 1. 025H, Urine Protein TRACEH, Urine Glucose (UA) NEGATIVE, Urine Ketones NEGATIVE, Urine Nitrite NEGATIVE, Urine Bilirubin NEGATIVE, Urine Urobilinogen 0.2, Urine Leukocyte Esterase NEGATIVE, Urine RBC (Auto) NEGATIVE, Urine RBC NONE, Urine WBC 0-2, Urine Squamous Epithelial Cells 0-2, Urine Crystals NONE, Urine Bacteria TRACE, Urine Casts NONE, Urine Mucus SMALLH, Urine Culture Indicated NO 06/22/20 15:20: Lactic Acid Level 2.53*H 06/22/20 15:44: Glucometer 77 06/22/20 17:15: Blood Gas Puncture Site LR, Blood Gas Patient Temperature 36.8, Arterial Blood pH 7.40, Arterial Blood Partial Pressure CO2 32L, Arterial Blood Partial Pressure O2 85, Arterial Blood HCO3 20L, Arterial Blood Total CO2 20.5L, Arterial Blood Oxygen Saturation 97, Arterial Blood Base Excess -4.4L, Joey Test YES-POS, Blood Gas Ventilator Setting NO, Blood Gas Inspired Oxygen RA 06/22/20 18:20: Lactic Acid Level 2.30*H 06/22/20 20:05: Glucometer 95 06/23/20 06:00: Lactic Acid Level 0.99, White Blood Count 21.0H, Red Blood Count 3.13L, Hemoglobin 8.5#L, Hematocrit 27L, Mean Corpuscular Volume 85, Mean Corpuscular Hemoglobin 27, Mean Corpuscular Hemoglobin Concent 32, Red Cell Distribution Width 20.0H, Platelet Count 322, Mean Platelet Volume 9.9, Immature Granulocyte % (Auto) 10, Neutrophils (%) (Auto) 71, Lymphocytes (%) (Auto) 13, Monocytes (%) (Auto) 5, Eosinophils (%) (Auto) 0, Basophils (%) (Auto) 0, Neutrophils # (Auto) 15.0H, Lymphocytes # (Auto) 2.7, Monocytes # (Auto) 1.1H, Eosinophils # (Auto) 0.1, Basophils # (Auto) 0.0, Immature Granulocyte # (Auto) 2.1H, Sodium Level 130L, Potassium Level 3.9, Chloride Level 103, Carbon Dioxide Level 20L, Anion Gap 7, Blood Urea Nitrogen 13, Creatinine 0.43L, Estimat Glomerular Filtration Rate > 60, BUN/Creatinine Ratio 30, Glucose Level 68L, Calcium Level 8.1L, Corrected Calcium 9.5, Total Bilirubin 0.5, Aspartate Amino Transf (AST/SGOT) 14, Alanine Aminotransferase (ALT/SGPT) 24, Alkaline Phosphatase 213H, Total Protein 4.5L, Albumin 2.2L, Procalcitonin 0.85H 06/23/20 09:44: Glucometer 103 06/23/20 15:35: Glucometer 239H 06/23/20 20:04: Glucometer 203H 06/24/20 01:10: Vancomycin Level Trough 28.8*H 06/24/20 05:40: White Blood Count 14.8H, Red Blood Count 2.90L, Hemoglobin 7.7L, Hematocrit 25L, Mean Corpuscular Volume 86, Mean Corpuscular Hemoglobin 27, Mean Corpuscular Hemoglobin Concent 31L, Red Cell Distribution Width 19.9H, Platelet Count 318, Mean Platelet Volume 9.7, Immature Granulocyte % (Auto) 11, Neutrophils (%) (Auto) 75, Lymphocytes (%) (Auto) 10L, Monocytes (%) (Auto) 4, Eosinophils (%) (Auto) 0, Basophils (%) (Auto) 0, Neutrophils # (Auto) 11.2H, Lymphocytes # (Auto) 1.5, Monocytes # (Auto) 0.6, Eosinophils # (Auto) 0.0, Basophils # (Auto) 0.0, Immature Granulocyte # (Auto) 1.6H, Sodium Level 134L, Potassium Level 4.2, Chloride Level 104, Carbon Dioxide Level 20L, Anion Gap 10, Blood Urea Nitrogen 10, Creatinine 0.47L, Estimat Glomerular Filtration Rate > 60, BUN/Creatinine Ratio 21, Glucose Level 160H, Lactic Acid Level 2.07*H, Calcium Level 8.6, Corrected Calcium 10.0, Total Bilirubin 0.2, Aspartate Amino Transf (AST/SGOT) 7, Alanine Aminotransferase (ALT/SGPT) 19, Alkaline Phosphatase 182H, Total Protein 4.7L, Albumin 2.3L, Procalcitonin 0.25H 06/24/20 08:00: Lactic Acid Level 2.96*H Microbiology 06/22/20 C. difficile GDH Antigen & Toxins - Final, Complete 06/22/20 Blood Culture - Preliminary, Resulted No growth Pending Labs Microbiology Date/Time Source Procedure Growth Status 06/22/20 17:25 Stool C. difficile GDH Antigen & Toxins - Final Complete 06/22/20 13:32 Peripheral Left Wrist Blood Culture - Preliminary No growth Resulted 06/22/20 13:22 Peripheral Right Wrist Blood Culture - Preliminary No growth Resulted Laboratory Tests 06/22/20 13:22: White Blood Count 18.1, Red Blood Count 4.06, Hemoglobin 10.8, Hematocrit 35, Mean Corpuscular Volume 86, Mean Corpuscular Hemoglobin 27, Mean Corpuscular Hemoglobin Concent 31, Red Cell Distribution Width 19.9, Platelet Count 442, Mean Platelet Volume 9.8, Immature Granulocyte % (Auto) 10, Neutrophils (%) (Aut o) 70, Lymphocytes (%) (Auto) 14, Monocytes (%) (Auto) 5, Eosinophils (%) (Auto) 0, Basophils (%) (Auto) 0, Neutrophils # (Auto) 12.7, Lymphocytes # (Auto) 2.6, Monocytes # (Auto) 1.0, Eosinophils # (Auto) 0.1, Basophils # (Auto) 0.0, Immature Granulocyte # (Auto) 1.8, Neutrophils % (Manual) 53, Lymphocytes % (Manual) 19, Monocytes % (Manual) 5, Band Neutrophils 23, Polychromasia SLIGHT, Poikilocytosis SLIGHT, Anisocytosis MODERATE, Microcytosis SLIGHT, Macrocytosis SLIGHT, Sodium Level 131, Potassium Level 4.7, Chloride Level 99, Carbon Dioxide Level 22, Anion Gap 10, Blood Urea Nitrogen 15, Creatinine 0.48, Estimat Glomerular Filtration Rate > 60, BUN/Creatinine Ratio 31, Glucose Level 67, Lactic Acid Level 2.96, Calcium Level 9.5, Corrected Calcium 10.2, Iron Level 27, Total Bilirubin 0.4, Aspartate Amino Transf (AST/SGOT) 18, Alanine Aminotransferase (ALT/SGPT) 27, Alkaline Phosphatase 248, Total Protein 6.1, Albumin 3.1, Procalcitonin 0.18 06/22/20 13:30: Urine Color YELLOW, Urine Clarity CLEAR, Urine pH 5.5, Urine Specific [place] 1.025, Urine Protein TRACE, Urine Glucose (UA) NEGATIVE, Urine Ketones NEGATIVE, Urine Nitrite NEGATIVE, Urine Bilirubin NEGATIVE, Urine Urobilinogen 0.2, Urine Leukocyte Esterase NEGATIVE, Urine RBC (Auto) NEGATIVE, Urine RBC NONE, Urine WBC 0-2, Urine Squamous Epithelial Cells 0-2, Urine Crystals NONE, Urine Bacteria TRACE, Urine Casts NONE, Urine Mucus SMALL, Urine Culture Indicated NO 06/22/20 15:20: Lactic Acid Level 2.53 06/22/20 15:44: Glucometer 77 06/22/20 17:15: Blood Gas Puncture Site LR, Blood Gas Patient Temperature 36.8, Arterial Blood pH 7.40, Arterial Blood Partial Pressure CO2 32, Arterial Blood Partial Pressure O2 85, Arterial Blood HCO3 20, Arterial Blood Total CO2 20.5, Arterial Blood Oxygen Saturation 97, Arterial Blood Base Excess -4.4, Joey Test YES-POS, Blood Gas Ventilator Setting NO, Blood Gas Inspired Oxygen RA 06/22/20 18:20: Lactic Acid Level 2.30 06/22/20 20:05: Glucometer 95 06/23/20 06:00: Lactic Acid Level 0.99, White Blood Count 21.0, Red Blood Count 3.13, Hemoglobin 8.5, Hematocrit 27, Mean Corpuscular Volume 85, Mean Corpuscular Hemoglobin 27, Mean Corpuscular Hemoglobin Concent 32, Red Cell Distribution Width 20.0, Platelet Count 322, Mean Platelet Volume 9.9, Immature Granulocyte % (Auto) 10, Neutrophils (%) (Auto) 71, Lymphocytes (%) (Auto) 13, Monocytes (%) (Auto) 5, Eosinophils (%) (Auto) 0, Basophils (%) (Auto) 0, Neutrophils # (Auto) 15.0, Lymphocytes # (Auto) 2.7, Monocytes # (Auto) 1.1, Eosinophils # (Auto) 0.1, Basophils # (Auto) 0.0, Immature Granulocyte # (Auto) 2.1, Sodium Level 130, Potassium Level 3.9, Chloride Level 103, Carbon Dioxide Level 20, Anion Gap 7, Blood Urea Nitrogen 13, Creatinine 0.43, Estimat Glomerular Filtration Rate > 60, BUN/Creatinine Ratio 30, Glucose Level 68, Calcium Level 8.1, Corrected Calcium 9.5, Total Bilirubin 0.5, Aspartate Amino Transf (AST/SGOT) 14, Alanine Aminotransferase (ALT/SGPT) 24, Alkaline Phosphatase 213, Total Protein 4.5, Albumin 2.2, Procalcitonin 0.85 06/23/20 09:44: Glucometer 103 06/23/20 15:35: Glucometer 239 06/23/20 20:04: Glucometer 203 06/24/20 01:10: Vancomycin Level Trough 28.8 06/24/20 05:40: White Blood Count 14.8, Red Blood Count 2.90, Hemoglobin 7.7, Hematocrit 25, Mean Corpuscular Volume 86, Mean Corpuscular Hemoglobin 27, Mean Corpuscular Hemoglobin Concent 31, Red Cell Distribution Width 19.9, Platelet Count 318, Mean Platelet Volume 9.7, Immature Granulocyte % (Auto) 11, Neutrophils (%) (Auto) 75, Lymphocytes (%) (Auto) 10, Monocytes (%) (Auto) 4, Eosinophils (%) (Auto) 0, Basophils (%) (Auto) 0, Neutrophils # (Auto) 11.2, Lymphocytes # (Auto) 1.5, Monocytes # (Auto) 0.6, Eosinophils # (Auto) 0.0, Basophils # (Auto) 0.0, Immature Granulocyte # (Auto) 1.6, Sodium Level 134, Potassium Level 4.2, Chloride Level 104, Carbon Dioxide Level 20, Anion Gap 10, Blood Urea Nitrogen 10, Creatinine 0.47, Estimat Glomerular Filtration Rate > 60, BUN/Creatinine Ratio 21, Glucose Level 160, Lactic Acid Level 2.07, Calcium Level 8.6, Corrected Calcium 10.0, Total Bilirubin 0.2, Aspartate Amino Transf (AST/SGOT) 7, Alanine Aminotransferase (ALT/SGPT) 19, Alkaline Phosphatase 182, Total Protein 4.7, Albumin 2.3, Procalcitonin 0.25 06/24/20 08:00: Lactic Acid Level 2.96 Discharge Home Medications: Active Scripts Active Reported Tramadol HCl 50 Mg Tablet 50 Mg PO Q6H PRN Promethazine Vial (Promethazine HCl) 25 Mg/1 Ml Ampul 12.5 Mg IV Q6H PRN Ondansetron HCl 2 Mg/1 Ml Vial 4 Mg IV Q6H PRN Midodrine HCl 5 Mg Tablet 10 Mg PO Q4H PRN ADMINISTER LAST OF THE DAY BEFORE 1800 Metoprolol Tartrate 5 Mg/5 Ml Vial 5 Mg IV Q4H PRN Lorazepam 2 Mg/1 Ml Vial 1 Mg IV BID PRN Hydralazine HCl 20 Mg/1 Ml Vial 20 Mg IV Q4H PRN Diphenhydramine HCl 50 Mg/1 Ml Vial 12.5 Mg IV Q6H PRN Dextrose 50%-Water Syringe (Dextrose 50 % in Water) 50 Ml Syringe 50 Ml IV PRN PRN Chloraseptic Max Ronks (Phenol/Glycerin) 30 Ml Ronks 2 Sprays PO EVERY 2 HOURS PRN Cathflo Activase (Alteplase) 2 Mg Vial 2 Mg PRN PRN USE TO EACH PORT THAT FAILS TO DRAW BLOOD OR FLUSH EASILY Iprat-Albut 0.5-3(2.5) mg/3 ml (Ipratropium/Albuterol Sulfate) 3 Ml Ampul.neb 3 Ml IH Q4H PRN Acetaminophen 650 Mg Supp.rect 650 Mg RC Q6H PRN Carafate (Sucralfate) 1 Gm Tablet 1 Gm PO Q6H MAY DISSOLVE IN WATER [place] Sodium Chlor Flush (Sodium Chloride 0.9 % (Flush)) 10 Ml Syringe 10 Ml IV Q12H FLUSH WITH 10ML ALL LINES IN USE WITH TURBULENT POSITIVE PRESSURE [place] Sodium Chlor Flush (Sodium Chloride 0.9 % (Flush)) 10 Ml Syringe 20 Ml IV UD PRN FLUSH WITH 20ML WITH TURBULENT POSITIVE PRESSURE AFTER DRAWING BLOOD [place] Sodium Chlor Flush (Sodium Chloride 0.9 % (Flush)) 10 Ml Syringe 10 Ml BID PRN FLUSH KEYANNA DRAIN WITH 10ML WITH EACH SHIRT AND PRN [place] Sodium Chlor Flush (Sodium Chloride 0.9 % (Flush)) 10 Ml Syringe 10 Ml IV UD PRN FLUSH EACH PORT WITH 10ML SALINE WITH TURBULENT POSITIVE PRESSURE AFTER EACH USE Nystatin 1 Each Powder.ea. 1 Each TOP BID APPLY TO RASH Multivitamins with Minerals (Multivitamin with Minerals) 1 Each Tablet 1 Each PO DAILY Prednisone 10 Mg Tab 10 Mg PO DAILY Lidocaine 5% Patch (Lidocaine) 1 Each Adh..patch 1 Each TP DAILY APPLY TO BACK - REMOVE AT BEDTIME Levothyroxine Sodium 100 Mcg Tablet 100 Mcg PO DAILY Acidophilus-Pectin Capsule (Lactobacillus Acidophilus/Pect) 1 Each Capsule 1 Each PO BID Insulin Lispro 100 Unit/1 Ml Vial 0-14 Unit SQ ACHS Heparin Sodium (Heparin Sodium,Porcine) 5,000 Unit/1 Ml Vial 5,000 Unit SQ Q12H Advair 250-50 Diskus (Fluticasone/Salmeterol) 1 Each Blst.w.dev 1 Each IH BID Acid Pill Packer (FAMOTIDINE) (Famotidine) 20 Mg Tablet 20 Mg PO BID Voltaren (Diclofenac Sodium) 100 Gm Gel..gram. 1 Applic TOP BID APPLY TO BILATERAL KNEES Instructions to patient/family Please see electronic discharge instructions given to patient. Diagnosis/Problems Diagnosis/Problems (1) Myopathy (2) Ileostomy in place (3) Sepsis (4) Tachycardia (5) Lactic acid acidosis (6) Duodenal ulcer (7) History of peritonitis (8) Hypothyroidism (9) Leukocytosis (10) Anemia (11) COPD (chronic obstructive pulmonary disease) MAURICIO NUNES DO Jun 24, 2020 11:20
--- NOTE | 2020-06-25 15:28 | Therapy Team Discharge Summary ---
Therapy Discharge Summary Discharge Recommendations Date of Discharge Jun 24, 2020 at 09:09 Physical Therapy Patient admitted to IRF with dx of disuse myopathy and presented to therapy with generalized weakness and debility. Upon admission, patient was Max A x1 with all transfers and bed mobility, unable to ambulate, and unable to navigate stairs. After therapy interventions, quality coding was not obtained to assess progress secondary to medical complications requiring transfer to surgical floor. Patient to be d/c from therapy services at this time. Occupational Therapy Decreased Activ Tolerance, Decreased UE Strength, Dependent Transfers, Impaired Bed Mobility, Impaired Coordination, Impaired Funct Balance, Impaired I ADL's, Impaired Self-Care Skills, Restricted Funct UE ROM PT Jail Goals Jail Goals PT Car Repair Supervisor Goals Time Frame: Jul 13, 2020 Roll Left to Right (QC): 6 Sit to Lying (QC): 6 Lying-Sitting on Side/Bed(QC): 6 Sit to Stand (QC): 6 Chair/Bro-be-Mbxvv Xfer(QC): 6 Car Transfer (QC): 6 Does the Patient Walk: No and Walking Goal IS indicated Walk 10 feet (QC): 4 Walk 10ft-Uneven Surface(QC): 4 Walk 50ft with 2 Turns (QC): 4 Walk 150 ft (QC): 4 Wheel 50 feet with 2 turns (QC: 6 1 Step (curb) (QC): 4 4 Steps (QC): 4 12 Steps (QC): 4 Picking up an Object (QC): 4 OT Jail Goals Jail Goals Time Frame: Jul 20, 2020 Eating (QC): 6 Oral Hygiene (QC): 6 Shower/Bathe Self (QC): 6 Upper Body Dressing (QC): 6 Lower Body Dressing (QC): 6 On/Off Footwear (QC): 6 Toileting Hygiene (QC): 6 Toilet/Commode Transfer (QC): 6 Additional Goals: 1-Demonstrate ADL Tasks, 2-Verbalize Understanding, 3- ImproveStrength/Joni 1=Demonstrate adherence to instructed precautions during ADL tasks. 2=Patient will verbalize/demonstrate understanding of assistive devices/modifications for ADL. 3=Patient will improve strength/tolerance for activity to enable patient to perform ADL's. KENYETTA RETANA PT Jun 25, 2020 15:28
--- NOTE | 2020-06-25 15:31 | Therapy Team Discharge Summary ---
Therapy Discharge Summary Discharge Recommendations Date of Discharge Jun 24, 2020 at 09:09 Occupational Therapy Pt admitted to ARU with debility. At OF, pt was independent with ADLS and f unctional mobility, no AD/AE. Upon initial evaluation, pt required set up assistance with eating and oral care, max A upper body dressing, and total assist wtih showering, lower body dressing, footwear and toileting. Pt did not meet any goals, as she transferred off of the floor prior to any follow up OT txs. Pt transferred to ICU due to increased medical complexity, then transferred to another facility. Pt d/c'd from ARU, d/c from OT. Decreased Activ Tolerance, Decreased UE Strength, Dependent Transfers, Impaired Bed Mobility, Impaired Coordination, Impaired Funct Balance, Impaired I ADL's, Impaired Self-Care Skills, Restricted Funct UE ROM PT Instructional Manager Goals [facility] Goals PT [facility] Goals Time Frame: Jul 13, 2020 Roll Left to Right (QC): 6 Sit to Lying (QC): 6 Lying-Sitting on Side/Bed(QC): 6 Sit to Stand (QC): 6 Chair/Uax-sk-Sueov Xfer(QC): 6 Car Transfer (QC): 6 Does the Patient Walk: No and Walking Goal IS indicated Walk 10 feet (QC): 4 Walk 10ft-Uneven Surface(QC): 4 Walk 50ft with 2 Turns (QC): 4 Walk 150 ft (QC): 4 Wheel 50 feet with 2 turns (QC: 6 1 Step (curb) (QC): 4 4 Steps (QC): 4 12 Steps (QC): 4 Picking up an Object (QC): 4 OT [facility] Goals Instructional Manager Goals Time Frame: Jul 20, 2020 Eating (QC): 6 (not met) Oral Hygiene (QC): 6 (not met) Shower/Bathe Self (QC): 6 (not met) Upper Body Dressing (QC): 6 (not met) Lower Body Dressing (QC): 6 (not met) On/Off Footwear (QC): 6 (not met) Toileting Hygiene (QC): 6 (not met) Toilet/Commode Transfer (QC): 6 (not met) Additional Goals: 1-Demonstrate ADL Tasks, 2-Verbalize Understanding, 3- ImproveStrength/Joni 1=Demonstrate adherence to instructed precautions during ADL tasks. 2=Patient will verbalize/demonstrate understanding of assistive devices/modifications for ADL. 3=Patient will improve strength/tolerance for activity to enable patient to perform ADL's. KARMA FROST OT Jun 25, 2020 15:31
== END 2020-06-24 09:09 | disposition short-term general hospital (02) | DRG 91 ==
PROVIDERS: ADMIT Internal Medicine; ATTEND Internal Medicine
DX: G72.89 Other specified myopathies (principal); A41.9 Sepsis, unspecified organism; J18.9 Pneumonia, unspecified organism; K65.1 Peritoneal abscess; T81.31XA Disruption of external operation (surgical) wound, not elsewhere classified, initial encounter; T81.49XA Infection following a procedure, other surgical site, initial encounter; E46 Unspecified protein-calorie malnutrition; J44.0 Chronic obstructive pulmonary disease with (acute) lower respiratory infection; D64.9 Anemia, unspecified; I10 Essential (primary) hypertension; G47.30 Sleep apnea, unspecified; K57.90 Diverticulosis of intestine, part unspecified, without perforation or abscess without bleeding; E03.9 Hypothyroidism, unspecified; F31.9 Bipolar disorder, unspecified; F41.9 Anxiety disorder, unspecified; Z93.2 Ileostomy status; Z68.33 Body mass index [BMI] 33.0-33.9, adult; Z48.815 Encounter for surgical aftercare following surgery on the digestive system; Z88.0 Allergy status to penicillin
CPT/HCPCS: 36415; 36569; 71045; 71260; 74177; 76937; 80053; 80202; 81000; 82805; 82962; 83540; 83605; 84145; 85007; 85025; 85027; 87040; 87324; 87449; 94640; 94664; 94760

== ENCOUNTER 2020-06-24 09:03 | Inpatient (IN) | payer BC ==
[~2020-06-24] VITALS: Ht 158 cm; Wt 91.2 kg
[~2020-06-24 09:03] MED LIST: ACET-2650 PO; ACET650S15 RC; ALTE2VIA2; DEXT50DI2 IV; DICL100G18 TOP; DIPH50VI12 IV; FAMO20TA3 PO; FLUT1DIS26 IH; HEPA500018 SQ; HYDR20VI7 IV; INSU100V39 SQ; IPRA3AMP31 IH; LACT1CAP7 PO; LEVO100T7 PO; LIDO700A45 TP; LORA2VIA3 IV; METO5VIA26 IV; MIDO5TAB3 PO; MULT-166 PO; NYST1POW31 TOP; ONDA2VIA2 IV; PHEN30SP8 PO; PRD10T PO; PROM25AM2 IV; SODI10SY5; SODI10SY5 IV; SUCR1TAB36 PO; TRAM50TA3 PO
--- NOTE | 2020-06-24 09:39 | Diagnostic Imaging Report ---
INDICATION: Fever COMPARISON STUDY: Chest radiograph from yesterday. FINDINGS: Portable upright view of the chest demonstrates a left arm PICC line remaining in good position. Infiltrates in the right upper lobe have not appreciably changed. Mild blunting of the left costophrenic angle is again identified. Heart size and vascularity are normal. IMPRESSION: Stable right upper lobe infiltrate. Dictated by: Dictated on workstation # [id number]
[2020-06-24] MEDS ORDERED: HOLD METFORMIN - RECEIVED CONTRAST 20 ML VIAL IV SCH (09:45)
[2020-06-24] MEDS ORDERED: LACTULOSE SYRUP 10GM/15ML (ENULOSE) 30ML UDC PO PRN (09:45)
[2020-06-24] MEDS ORDERED: MIDODRINE 10 MG (PROAMATINE) TAB PO PRN (09:45)
[2020-06-24] MEDS ORDERED: ALPRAZolam 0.25 MG (XANAX) TAB PO PRN (09:45)
[2020-06-24] MEDS ORDERED: DEXTROSE 50% 50 ML (IMS) SYR IV PRN (09:45)
[2020-06-24] MEDS ORDERED: ALTEPLASE 2 MG (CATHFLO) INCATH PRN (09:45)
[2020-06-24] MEDS ORDERED: CATHETER FLUSH 10 ML SYR IV PRN (09:45)
[2020-06-24] MEDS ORDERED: ONDANSETRON 4 MG/2 ML (SDV) Z0FRAN IV PRN (09:45)
[2020-06-24] MEDS ORDERED: guaiFENesin/CODEINE (ROBITUSSIN AC) 10ML UDC PO PRN (09:45)
[2020-06-24] MEDS ORDERED: ACETAMINOPHEN 325 MG TABLET PO PRN (09:45)
[2020-06-24] MEDS ORDERED: BISACODYL 10 MG SUPP (DULCOLAX) PR PRN (09:45)
[2020-06-24] MEDS ORDERED: LOPERAMIDE 2 MG (IMODIUM) TABLET PO PRN (09:45)
[2020-06-24] MEDS ORDERED: CHLORASEPTIC SPRAY 177 ML LIQUID MM PRN (09:45)
[2020-06-24] MEDS ORDERED: hydrALAZINE (APESOLINE) 20 MG/ML VIAL IV PRN (09:45)
[2020-06-24] MEDS ORDERED: diphenhydrAMINE 25 MG TAB (BENADRYL) PO PRN (09:45)
[2020-06-24] MEDS ORDERED: FLEET ENEMA ADULT 1 EA BTL PR PRN (09:45)
[2020-06-24] MEDS ORDERED: ACETAMINOPHEN 650 MG SUPP (TYLENOL) RC PRN (09:45)
[2020-06-24] MEDS ORDERED: LORazepam INJ 2 MG/ML (ATIVAN) VIAL IV PRN (09:45)
[2020-06-24] MEDS ORDERED: MELATONIN 3 MG TABLET PO PRN (09:45)
[2020-06-24] MEDS ORDERED: ONDANSETRON 4 MG (ZOFRAN) ORAL DISSOLVE TAB PO PRN (09:45)
[2020-06-24] MEDS ORDERED: DOCUSATE SODIUM 100 MG (COLACE) CAP PO PRN (09:45)
[2020-06-24] MEDS ORDERED: PROMETHAZINE INJ 25 MG/ML (PHENERGAN) AMP IV PRN (09:45)
[2020-06-24] MEDS ORDERED: RT-ALBUTEROL/IPRATROPIUM 3 ML (DUONEB) VIAL INH PRN (09:45)
[2020-06-24] MEDS ORDERED: diphenhydrAMINE 50 MG/ML INJ (BENADRYL) IV PRN (09:45)
[2020-06-24] MEDS ORDERED: meTOprolol 5 MG/5 ML (LOPRESSOR) VIAL IV PRN (09:45)
[2020-06-24] MEDS ORDERED: SALINE NASAL SPRAY (OCEAN) 45 ML BTL PRN (09:45)
[2020-06-24] MEDS ORDERED: CALCIUM CARBONATE 500 MG (TUMS) TAB.CHEW PO PRN (09:45)
[2020-06-24] MEDS ORDERED: NS IV 500 ML 500 ML IV SCH ×2 (10:00)
[2020-06-24] MEDS ORDERED: FUROSEMIDE 40 MG/4 ML INJ (LASIX) IVP ONE (10:00)
[2020-06-24] MEDS: NS IV 1000 ML 1,000 ML IV SCH ×4 (10:24→20:29)
[2020-06-24 10:47] LABS: ABG OXYGEN SATURATION 97 % (94-100); ABG PCO2 32 MMHG (35-45); ABG PH 7.39 (7.37-7.43); ABG PO2 86 MMHG (79-93); ABG TCO2 20.1 MMOL/L (21.0-31.0); ALLENS TEST YES-POS; PATIENT TEMP 36.5; VENTILATOR NO
[2020-06-24] MEDS ORDERED: LIDOCAINE 4% (SALONPAS) PATCH TP SCH (11:00)
[2020-06-24] MEDS: inSUlin ASPART (NovoLOG) 1 UNIT/0.01 ML (CHARGE PER UNIT) SC SCH ×3 (11:08→20:23)
--- NOTE | 2020-06-24 11:19 | History & Physical ---
History of Present Illness HPI/Chief Complaint CC: Sepsis with severe anemia with PNA and peritoneal abscesses HPI: Short IRF course before transferring to ICU due to severe anemia, HAP on CXR and elevated lactic acid and multiple peritoneal abscesses on CT scan after [facility] declined transfer and suggested to move to [facility] with Dr Magallanes the original surgeon but she needed higher level of care and he declined the transfer. Patient had been dx with sepsis upon arrival for IRF 06/22/20 (after 2 month stay at [facility] after 1 month stay at [facility] following complications from an ileostomy takedown after urgent surgery 08/2019 from ruptured diverticulum which required multiple surgical explorations and drains p laced s/p duodenal ulcer perforation requiring duodenal clamp per Dr Cardenas while at [facility] after it did not heal when NPO and on TPN after several weeks) with 101.4 fever and elevated wbc requiring broad spectrum abx with anti-fungal and IVF. Apparently she had FUO for 3 weeks and placed on broad spectrum abx in the meantime per Dr Palacios. Dr Moscoso had conferred with Dr Magallanes and Dr Cardenas and radiologist reviewed the CT scan confirming possible contrast communicating with the peritoneal abscess so she was moved to ICU and Gladis Moser and [facility] will confer to evaluate the best approach for abscess wash out and revision and will transfuse 1 unit of blood and will monitor for readmit to IRF once medically stable. Source: patient, old records Exam Limitations: no limitations Date Seen 06/24/20 Time Seen by a Provider: 11:00 Attending Physician Audrey Nunes DO PCP No,Local Physician Referring Physician Date of Admission Jun 24, 2020 at 09:30 Home Medications & Allergies Home Medications Reviewed patient Home Medication Reconciliation performed by pharmacy medication reconciliations vending machine technician and/or nursing. Patients Allergies have been reviewed. Allergies Allergies Coded Allergies Penicillins (Verified Allergy, Unknown, 06/22/20) Past Kvvntfs-Yobyjz-Msubyr Hx Past Med/Social Hx: Reviewed Nursing Past Med/Soc Hx, Reviewed and Corrections made Patient Social History Marrital Status: single Employed/Student: employed Alcohol Use: Denies Use Smoking Status: Former Smoker Immunizations Up To Date Date of Influenza Vaccine: Dec 26, 2019 Past Medical History Surgeries: Abdominal Respiratory: COPD, Pneumonia (06/22/20 [facility] IRF) Cardiac: Hypertension Gastrointestinal: Diverticulosis, Ulcer Endocrine: Hypothyroidsim Loss of Vision: Denies Hearing Impairment: Denies Psychosocial: Bipolar Family History Diabetes Review of Systems Constitutional: see HPI, fever, malaise, weakness EENTM: no symptoms reported Respiratory: cough Cardiovascular: no symptoms reported Gastrointestinal: abdominal pain, loss of appetite, nausea Genitourinary: no symptoms reported Musculoskeletal: back pain Skin: no symptoms reported Psychiatric/Neurological: Anxiety, Depressed, Emotional Problems All Other Systems Reviewed Negative Unless Noted: Yes Physical Exam Physical Exam Vital Signs Vital Signs - First Documented 06/24/20 06/24/20 06/24/20 09:42 09:53 11:35 Temp 36.6 Pulse 92 Resp 17 B/P (MAP) 131/65 (87) Pulse Ox 97 O2 Delivery Room Air Capillary Refill : Height, Weight, BMI Height: '" Weight: lbs. oz. kg; 36.53 BMI Method: General Appearance: No Apparent Distress, WD/WN, Anxious, Chronically ill Eyes: Bilateral Eye Normal Inspection, Bilateral Eye PERRL HEENT: PERRL/EOMI, Normal ENT Inspection, Pharynx Normal Neck: Full Range of Motion, Normal Inspection, Non Tender, Supple, Carotid Bruit Respiratory: Chest Non Tender, Lungs Clear, No Accessory Muscle Use, No Respiratory Distress, Decreased Breath Sounds Cardiovascular: No Edema, No Gallop, No JVD, No Murmur, Normal Peripheral Pulses, Tachycardia Gastrointestinal: Normal Bowel Sounds, No Organomegaly, No Pulsatile Mass, Tenderness Back: Normal Inspection, No CVA Tenderness, No Vertebral Tenderness Extremity: Normal Capillary Refill, Normal Inspection, Normal Range of Motion, Non Tender, No Calf Tenderness, No Pedal Edema Neurologic/Psychiatric: Alert, Oriented x3, No Motor/Sensory Deficits, mis manager II- XII Norm as Tested, Depressed Affect Skin: Normal Color, Warm/Dry Lymphatic: No Adenopathy Results Results/Procedures Labs Patient resulted labs reviewed. Assessment/Plan Admission Diagnosis Assessment: Acute sepsis requiring ICU admit with peritoneal abscesses on CT scan 06/23/20 awaiting [facility] surgical consultation plan since [facility] declined transfer and original surgeon at [place] unable to provide higher level of care PNA acute dx on admit to IRF 06/22/20 Severe anemia requiring transfusion today 06/24/20 of 1 unit of blood and hemoccult stools ordered COPD hx former smoker Hypothyroidism Ileostomy in place s/p perforated duodenal ulcer s/p clamp per Dr Ronald Wooten s/p peritonitis Tachycardia COVID-19 negative swab at [facility] FUO at [facility] for 3 weeks but appears it was the abscesses as the source Severe disuse myopathy Plan: Broad spectrum abx IVF Monitor closely in ICU Pain meds Check ABG Consult Dr Moser (1) Myopathy (2) Ileostomy in place (3) Sepsis (4) Tachycardia (5) Lactic acid acidosis (6) Duodenal ulcer (7) History of peritonitis (8) Hypothyroidism (9) Leukocytosis (10) Anemia (11) COPD (chronic obstructive pulmonary disease) Admission Status: Inpatient Order (span 2 midnights) Reason for Inpatient Admission: sepsis with abd abscesses Diagnosis/Problems Diagnosis/Problems (1) Sepsis (2) Peritoneal abscess (3) Duodenal perforation (4) Transfusion of platelets during current hospitalization (5) Pneumonia (6) History of peritonitis (7) Ileostomy in place (8) Lactic acid acidosis (9) Tachycardia (10) Myopathy (11) Leukocytosis (12) Hypothyroidism (13) Anemia (14) Duodenal ulcer (15) COPD (chronic obstructive pulmonary disease) AUDREY NUNES DO Jun 24, 2020 11:19
[2020-06-24 11:35] VITALS: BP 127/78
[2020-06-24 11:47] VITALS: BP 127/82
[2020-06-24] MEDS ORDERED: TROUGH ORDER-PHARMACY XX NR (13:00)
[2020-06-24 13:04] VITALS: BP 114/68
[2020-06-24] MEDS: SUCRALFATE 1 GM (CARAFATE) TAB PO SCH ×2 (13:22→17:35)
[2020-06-24] MEDS ORDERED: VANCOMYCIN INJECTION 1,250 MG in NS (IVPB) 250 ML IV SCH ×2 (14:00→18:00)
[2020-06-24] MEDS: MEROPENEM 500 MG in WATER (STERILE) FOR INJECTION 10 ML IV SCH ×2 (14:01→20:29)
--- NOTE | 2020-06-24 14:05 | Progress Note - Surgery ---
TATYANA ARNDT MED STUDENT 06/24/20 1405: Subjective Date Seen by a Provider: Jun 24, 2020 Time Seen by a Provider: 09:10 Subjective/Events-last exam Patient is awake and laying in bed this morning. States that she has no pain at all this morning. She is eating okay, no nausea or vomiting. Her ostomy is producing. Drains are in place, have some scant clear fluid in them. Ostomy bag over R flank cyst. She has not done any PT today. She is using her IS. Review of Systems General: No Chills HEENT: No Head Aches, No Visual Changes Pulmonary: No Dyspnea, No Cough Cardiovascular: No: Chest Pain, Palpitations Gastrointestinal: No: Nausea, Vomiting, Abdominal Pain Genitourinary: No Dysuria, No Hematuria Musculoskeletal: No: leg pain Objective Exam Vital Signs Date Time Temp Pulse Resp B/P (MAP) Pulse Ox O2 Delivery O2 Flow Rate FiO2 06/24/20 13:29 99 Room Air 06/24/20 13:04 37.0 80 14 114/68 99 Room Air 06/24/20 12:59 83 06/24/20 12:00 36.5 06/24/20 12:00 81 18 133/77 (95) 100 Room Air 06/24/20 12:00 99 Room Air 06/24/20 11:47 36.5 84 24 127/82 100 Room Air 06/24/20 11:35 36.6 81 22 127/78 98 Room Air 06/24/20 11:00 84 13 127/78 (94) 99 Room Air 06/24/20 10:00 91 20 120/67 (84) 98 Room Air 06/24/20 09:53 93 17 131/65 (87) 97 Room Air 06/24/20 09:42 92 Capillary Refill : General Appearance: No Apparent Distress, Obese Respiratory: Chest Non Tender, Lungs Clear, Normal Breath Sounds, No Accessory Muscle Use, No Respiratory Distress Cardiovascular: Regular Rate, Rhythm, No Edema, No Murmur Peripheral Pulses: 2+ Radial Pulses (R), 2+ Radial Pulses (L) Gastrointestinal: normal bowel sounds, non tender, soft, other (Ostomy bag in place, contains stool. Ostomy bag over R flank, Drains in place with some clear fluid. ) Extremity: Non Tender, No Calf Tenderness, Pedal Edema (2+ Pitting) Neurologic/Psychiatric: Alert, Oriented x3 Skin: Normal Color, Warm/Dry Results Lab Laboratory Tests 06/24/20 10:36: Blood Gas Puncture Site LT RAD, Blood Gas Patient Temperature 36.5, Arterial Blood pH 7.39, Arterial Blood Partial Pressure CO2 32L, Arterial Blood Partial Pressure O2 86, Arterial Blood HCO3 19L, Arterial Blood Total CO2 20.1L, Arterial Blood Oxygen Saturation 97, Arterial Blood Base Excess -5.0L, Joey Test YES-POS, Blood Gas Ventilator Setting NO, Blood Gas Inspired Oxygen UNKNOWN 06/24/20 10:50: Stool Occult Blood Immunoassay POSITIVEH 06/24/20 11:08: Glucometer 153H Assessment/Plan Assessment/Plan Assessment/Plan Abdominal/Flank Abscess - Right Ileostomy status Wound dehiscence -CT Completed yesterday, suspicous for fistula from duodenal bulb -She is being moved to ICU -May need to make NPO and give TPN until fistula can be closed CINTHIA RENDON DO 06/24/20 2247: Subjective Time Seen by a Provider: 19:01 Subjective/Events-last exam Pt seen and examined, appears comfortable in her bed and does not appear to be in distress. Denies pain and states she is hungry. Review of Systems General: No Chills; Fatigue, Malaise HEENT: No Head Aches, No Visual Changes Pulmonary: No Dyspnea, No Cough Cardiovascular: No: Chest Pain, Palpitations Gastrointestinal: No: Nausea, Vomiting, Abdominal Pain Genitourinary: No Dysuria, No Hematuria Objective Exam General Appearance: No Apparent Distress HEENT: Moist Mucous Membranes; No Scleral Icterus (L), No Scleral Icterus (R) Respiratory: Lungs Clear, Normal Breath Sounds, No Accessory Muscle Use, No Respiratory Distress Cardiovascular: Regular Rate, Rhythm, No Murmur Gastrointestinal: soft, tenderness (with deep palpation on right side), other (Ostomy bag in place, contains stool. Ostomy bag over R flank, Drains in place with foul smelling drainage. ) Extremity: No Calf Tenderness, Pedal Edema (2+ Pitting) Neurologic/Psychiatric: Alert, Oriented x3 Skin: Normal Color, Warm/Dry Assessment/Plan Assessment/Plan Assessment/Plan Abdominal Abscess draing into Flank Abscess and inguinal abscess - Right Ileostomy status Wound dehiscence -CT Completed yesterday, suspicous for fistula from duodenal bulb -She was moved to ICU -Need to make NPO and probably start TPN until fistula can be closed I spent appx 1 hour and 40 minutes of ICU time trying to figure out best course of care for this pt. I spoke to her primary surgeon for 20 minutes, I spoke to Dr. Cardenas the GI doctor who clipped her duodenal ulcer for 15 minutes, I called radiology spoke to them for 10 minutes to have them reread the CT, because I thought there was oral contrast in phlegmon/abscess and they agreed (addendum to reading made); I spent a total of [address] Deluna (discussing the fact that [facility] refused to accept her as a pt) and then spent another 25 minute talking to the pt and her mother. I went over 4 different options - 1) do nothing at all 2) try more percutaneous drains 3) surgery here which would entail probably pyloric exclusion and Bilroth 2 or Moises-Clem, multiple abdominal washouts possibly leaving abdomen open until clear, I&D with debridement of flank abscess, I&D for inguinal abscess or maybe percutaneous drainage, in addition this would be very difficult surgery because of everything going on plus her multiple previous surgeries and have high risk of damage to intestine 4) she could have surgery/care at a tertiary center where they would be better equipped to handle all these problems. She and her mother both requested transfer to a tertiary facility. As I was typing this I got a call from [facility] and spoke for 6 minutes; unfortunately that was with the Hospitalist/King Maker and they will now try and get a Surgeon to call me back. Supervisory-Addendum Brief Verification & Attestation Participated in pt care: history, MDM, physical Personally performed: exam, history, MDM Care discussed with: Medical Student Procedures: n/a Verification and Attestation of Medical Student E/M Service A medical student performed and documented this service. I then reviewed and verified all information documented by the medical student and made modific ations to such information, when appropriate. I personally performed a physical exam, medical decision making and then discussed any differences between the notes and made revisions as necessary to create one note. Cinthia Rendon , 06/24/20 , 22:56 TATYANA ARNDT MED STUDENT Jun 24, 2020 14:05 CINTHIA RENDON DO Jun 24, 2020 22:47
[2020-06-24] MEDS: HYDROmorphone 2 MG/ML VIAL (DILAUDID) IVP PRN (16:03)
[2020-06-24] MEDS ORDERED: ENOXAPARIN 40 MG/0.4 ML (LOVENOX) SYR SC SCH (17:00)
[2020-06-24] MEDS ORDERED: SENNA W/DOCUSATE (SENOKOT S) TABLET PO SCH (21:00)
[2020-06-24] MEDS ORDERED: MICONAZOLE 2% POWDER (DESENEX AF) 90 GM TOP SCH (21:00)
[2020-06-24] MEDS ORDERED: methylPREDNISolone 40 MG/ML (Solu-MEDROL) VIAL IV SCH (21:00)
[2020-06-24] MEDS ORDERED: polyethylene glycoL POWDER 17 GM (MIRALAX) PACK PO SCH (21:00)
[2020-06-24] MEDS ORDERED: LACTOBACILLUS ACIDOPHILUS (PROBIOTIC) CAPSULE PO SCH (21:00)
[2020-06-24] MEDS ORDERED: DICLOFENAC 1% GEL 100 GM (VOLTAREN) TUBE TOP SCH (21:00)
[2020-06-24] MEDS ORDERED: LIDOCAINE PATCH REMOVAL TP SCH (21:00)
[2020-06-24] MEDS ORDERED: FAMOTIDINE 20 MG (PEPCID) TABLET PO SCH (21:00)
[2020-06-24] MEDS ORDERED: FLUTICASONE/SALMETEROL 113-14 (AIRDUO RespiCLICK) IH SCH (21:00)
[2020-06-25] MEDS: SUCRALFATE 1 GM (CARAFATE) TAB PO SCH (01:45)
[2020-06-25] MEDS: MEROPENEM 500 MG in WATER (STERILE) FOR INJECTION 10 ML IV SCH (01:48)
[2020-06-25] MEDS: NS IV 1000 ML 1,000 ML IV SCH (01:48)
[2020-06-25] MEDS: HYDROmorphone 2 MG/ML VIAL (DILAUDID) IVP PRN (02:26)
--- NOTE | 2020-06-25 05:14 | Discharge Summary ---
Diagnosis/Chief Complaint Date of Admission Jun 24, 2020 at 09:30 Date of Discharge Jun 25, 2020 at 02:28 Discharge Diagnosis Assessment: Acute sepsis requiring ICU admit with peritoneal abscesses on CT scan 06/23/20 awaiting [facility] surgical consultation plan since [facility] declined transfer and original surgeon at [facility] unable to provide higher level of care PNA acute dx on admit to IRF 06/22/20 Severe anemia requiring transfusion today 06/24/20 of 1 unit of blood and hemoccult stools ordered COPD hx former smoker Hypothyroidism Ileostomy in place s/p perforated duodenal ulcer s/p clamp per Dr Ronald Wooten s/p peritonitis Tachycardia COVID-19 negative swab at [place] [facility] [place] for 3 weeks but appears it was the abscesses as the source Severe disuse myopathy Plan: Broad spectrum abx IVF Monitor closely in ICU Pain meds Check ABG Consult Dr Moser Transfer to [facility] (1) Myopathy (2) Ileostomy in place (3) Sepsis (4) Tachycardia (5) Lactic acid acidosis (6) Duodenal ulcer (7) History of peritonitis (8) Hypothyroidism (9) Leukocytosis (10) Anemia (11) COPD (chronic obstructive pulmonary disease) Discharge Summary Discharge Physical Examination Allergies: Coded Allergies: Penicillins (Verified Allergy, Unknown, 06/22/20) Vitals & I&Os Vital Signs Date Time Temp Pulse Resp B/P (MAP) Pulse Ox O2 Delivery O2 Flow Rate FiO2 06/25/20 02:00 70 10 118/70 (86) 96 Room Air 06/25/20 00:00 36.5 General Appearance: Alert, Oriented X3, Cooperative Respiratory: Clear to Auscultation Cardiovascular: Regular Rate Hospital Course Was the Problem List Reviewed?: Yes Brief course after moved to ICU fro IRF. Transfused 1 unit of blood, maintained broad spectrum abx and Dr Moser worked tirelessly to obtain accepting facility and [facility] in [place] accepted her for peritoneal abscesses with sepsis. See HPI for details. Labs (last 24 hrs) Laboratory Tests 06/24/20 10:12: Lactic Acid Level 2.75*H 06/24/20 10:36: Blood Gas Puncture Site LT RAD, Blood Gas Patient Temperature 36.5, Arterial Blood pH 7.39, Arterial Blood Partial Pressure CO2 32L, Arterial Blood Partial Pressure O2 86, Arterial Blood HCO3 19L, Arterial Blood Total CO2 20.1L, Arter ial Blood Oxygen Saturation 97, Arterial Blood Base Excess -5.0L, Joey Test YES-POS, Blood Gas Ventilator Setting NO, Blood Gas Inspired Oxygen UNKNOWN 06/24/20 10:50: Stool Occult Blood Immunoassay POSITIVEH 06/24/20 11:08: Glucometer 153H 06/24/20 13:09: Lactic Acid Level 2.31*H 06/24/20 15:27: Vancomycin Level Trough 19.7 06/24/20 15:35: Glucometer 150H 06/24/20 15:57: Lactic Acid Level 1.74 06/24/20 20:13: Glucometer 122H 06/24/20 23:57: Glucometer 102 Microbiology 06/24/20 MRSA Screen - Final, Complete MRSA not isolated Pending Labs Microbiology Date/Time Source Procedure Growth Status 06/24/20 09:55 Nasal MRSA Screen - Final MRSA not isolated Complete Laboratory Tests 06/24/20 10:12: Lactic Acid Level 2.75 06/24/20 10:36: Blood Gas Puncture Site LT RAD, Blood Gas Patient Temperature 36.5, Arterial Blood pH 7.39, Arterial Blood Partial Pressure CO2 32, Arterial Blood Partial Pressure O2 86, Arterial Blood HCO3 19, Arterial Blood Total CO2 20.1, Arterial Blood Oxygen Saturation 97, Arterial Blood Base Excess -5.0, Joey Test YES-POS, Blood Gas Ventilator Setting NO, Blood Gas Inspired Oxygen UNKNOWN 06/24/20 10:50: Stool Occult Blood Immunoassay POSITIVE 06/24/20 11:08: Glucometer 153 06/24/20 13:09: Lactic Acid Level 2.31 06/24/20 15:27: Vancomycin Level Trough 19.7 06/24/20 15:35: Glucometer 150 06/24/20 15:57: Lactic Acid Level 1.74 06/24/20 20:13: Glucometer 122 06/24/20 23:57: Glucometer 102 Discharge Home Medications: Active Scripts Active Reported Tramadol HCl 50 Mg Tablet 50 Mg PO Q6H PRN Promethazine Vial (Promethazine HCl) 25 Mg/1 Ml Ampul 12.5 Mg IV Q6H PRN Ondansetron HCl 2 Mg/1 Ml Vial 4 Mg IV Q6H PRN Midodrine HCl 5 Mg Tablet 10 Mg PO Q4H PRN ADMINISTER LAST OF THE DAY BEFORE 1800 Metoprolol Tartrate 5 Mg/5 Ml Vial 5 Mg IV Q4H PRN Lorazepam 2 Mg/1 Ml Vial 1 Mg IV BID PRN Hydralazine HCl 20 Mg/1 Ml Vial 20 Mg IV Q4H PRN Diphenhydramine HCl 50 Mg/1 Ml Vial 12.5 Mg IV Q6H PRN Dextrose 50%-Water Syringe (Dextrose 50 % in Water) 50 Ml Syringe 50 Ml IV PRN PRN Chloraseptic Max [place] (Phenol/Glycerin) 30 Ml [place] 2 Sprays PO EVERY 2 HOURS PRN Cathflo Activase (Alteplase) 2 Mg Vial 2 Mg PRN PRN USE TO EACH PORT THAT FAILS TO DRAW BLOOD OR FLUSH EASILY Iprat-Albut 0.5-3(2.5) mg/3 ml (Ipratropium/Albuterol Sulfate) 3 Ml Ampul.neb 3 Ml IH Q4H PRN Acetaminophen 650 Mg Supp.rect 650 Mg RC Q6H PRN Carafate (Sucralfate) 1 Gm Tablet 1 Gm PO Q6H MAY DISSOLVE IN WATER [place] Sodium Chlor Flush (Sodium Chloride 0.9 % (Flush)) 10 Ml Syringe 10 Ml IV Q12H FLUSH WITH 10ML ALL LINES IN USE WITH TURBULENT POSITIVE PRESSURE [place] Sodium Chlor Flush (Sodium Chloride 0.9 % (Flush)) 10 Ml Syringe 20 Ml IV UD PRN FLUSH WITH 20ML WITH TURBULENT POSITIVE PRESSURE AFTER DRAWING BLOOD [place] Sodium Chlor Flush (Sodium Chloride 0.9 % (Flush)) 10 Ml Syringe 10 Ml BID PRN FLUSH KEY[place]NA DRAIN WITH 10ML WITH EACH SHIRT AND PRN [place] Sodium Chlor Flush (Sodium Chloride 0.9 % (Flush)) 10 Ml Syringe 10 Ml IV UD PRN FLUSH EACH PORT WITH 10ML SALINE WITH TURBULENT POSITIVE PRESSURE AFTER EACH USE Nystatin 1 Each Powder.ea. 1 Each TOP BID APPLY TO RASH Multivitamins with Minerals (Multivitamin with Minerals) 1 Each Tablet 1 Each PO DAILY Prednisone 10 Mg Tab 10 Mg PO DAILY Lidocaine 5% Patch (Lidocaine) 1 Each Adh..patch 1 Each TP DAILY APPLY TO BACK - REMOVE AT BEDTIME Levothyroxine Sodium 100 Mcg Tablet 100 Mcg PO DAILY Acidophilus-Pectin Capsule (Lactobacillus Acidophilus/Pect) 1 Each Capsule 1 Each PO BID Insulin Lispro 100 Unit/1 Ml Vial 0-14 Unit SQ ACHS Heparin Sodium (Heparin Sodium,Porcine) 5,000 Unit/1 Ml Vial 5,000 Unit SQ Q12H Advair 250-50 Diskus (Fluticasone/Salmeterol) 1 Each Blst.w.dev 1 Each IH BID Acid [employer] (FAMOTIDINE) (Famotidine) 20 Mg Tablet 20 Mg PO BID Voltaren (Diclofenac Sodium) 100 Gm Gel..gram. 1 Applic TOP BID APPLY TO BILATERAL KNEES Instructions to patient/family Please see electronic discharge instructions given to patient. Diagnosis/Problems Diagnosis/Problems (1) Sepsis (2) Peritoneal abscess (3) Duodenal perforation (4) Transfusion of platelets during current hospitalization (5) Pneumonia (6) History of peritonitis (7) Ileostomy in place (8) Lactic acid acidosis (9) Tachycardia (10) Myopathy (11) Leukocytosis (12) Hypothyroidism (13) Anemia (14) Duodenal ulcer (15) COPD (chronic obstructive pulmonary disease) MAURICIO NUNES DO Jun 25, 2020 05:14
[2020-06-25] MEDS ORDERED: LEVOTHYROXINE 100 MCG (LEVOTHROID) TAB PO SCH (06:30)
[2020-06-25] MEDS ORDERED: ANIDULAFUNGIN INJECTION 100 MG in NS (IVPB) 100 ML IV SCH (09:00)
[2020-06-25] MEDS ORDERED: MULTIVIT W/MINERALS TAB (THERAGRAN M) PO SCH (09:00)
== END 2020-06-25 02:28 | disposition short-term general hospital (02) | DRG 871 ==
LOC: ICU 09:30
PROVIDERS: ADMIT Internal Medicine; ATTEND Internal Medicine
DX: A41.9 Sepsis, unspecified organism (principal); K65.1 Peritoneal abscess; J18.9 Pneumonia, unspecified organism; T81.31XA Disruption of external operation (surgical) wound, not elsewhere classified, initial encounter; D64.9 Anemia, unspecified; Y95 Nosocomial condition; J44.9 Chronic obstructive pulmonary disease, unspecified; I10 Essential (primary) hypertension; E03.9 Hypothyroidism, unspecified; R19.5 Other fecal abnormalities; F31.9 Bipolar disorder, unspecified; F41.9 Anxiety disorder, unspecified; G72.89 Other specified myopathies; R00.0 Tachycardia, unspecified; Z93.2 Ileostomy status; Z88.0 Allergy status to penicillin
CPT/HCPCS: 36415; 71045; 80202; 82274; 82805; 82962; 83605; 86850; 86900; 86901; 86920; 87081